=== PATIENT | female | born 1940 | race Caucasian/White ===

== ENCOUNTER → 2018-02-28 | Outpatient (CLI) | payer MEDICARE ==
[2018-02-28 14:18] LABS: HCT 41.5 % (34.0-46.0); HGB 13.2 gm/dL (11.4-16.0); MCH 29.1 pg (25.0-35.0); MCHC 31.9 g/dL (31.0-37.0); MCV 91.4 fL (80.0-100.0); Mean Platelet Volume 7.4; Platelet Count 183 k/uL (150-450); RBC 4.54 m/uL (3.80-5.40); RDW 13.4 % (11.5-15.5); WBC 7.1 k/uL (3.8-10.6)
[2018-02-28 14:30] LABS: Magnesium 1.4 mg/dL (1.6-2.3); Potassium 4.2 mmol/L (3.5-5.1)
== END | disposition home or self-care (01) ==
LOC: LABPAT 13:17
PROVIDERS: ATTEND Internal Medicine Interventional Cardiology
DX: Z01.812 Encounter for preprocedural laboratory examination (principal); I25.10 Atherosclerotic heart disease of native coronary artery without angina pectoris; I10 Essential (primary) hypertension; I73.9 Peripheral vascular disease, unspecified
CPT/HCPCS: 36415; 80051; 82565; 82947; 83735; 84520; 85027

== ENCOUNTER → 2018-03-10 | Day surgery (SDC) | payer MEDICARE ==
[2018-03-06 10:31] VITALS: BMI 30.1
[~2018-03-10] MED LIST: ALPRAZolam 0.25 MG TAB PO PRN; ASPIRIN 81 MG ONE; ATROPINE SULFATE 0.1 MG/ML 10ML SYRINGE ONE; IOPAMIDOL-250 50ML BTL IV ONE; IOPAMIDOL-370 100ML BTL INJ ONE; IOPAMIDOL-370 125ML BTL INJ ONE; LIDOCAINE 1% INJ 10MG/ML (20 ML MDV) SQ ONE; MIDAZOLAM 2 MG/2 ML VIAL IVP ONE; SODIUM CHLORIDE 0.9% 1,000 ML IV SCH; SODIUM CHLORIDE 0.9% 1,000 ML in EMPTY BAG 1 BAG IV ONE; fentaNYL (PF) 50 MCG/ML 2 ML AMP IVP ONE
[2018-03-10 08:25] LABS: Glucose,Whole Blood 134 mg/dL (75-99)
[2018-03-10 08:42] VITALS: RESP 18; TEMP 98.4
--- NOTE | 2018-03-10 11:58 | IR ---
EXAMINATION TYPE: IR angio abdominal w runoff DATE OF EXAM: 03/10/2018 CLINICAL HISTORY: Left leg pain. Abnormal ultrasound. TECHNIQUE: Fluoroscopy. COMPARISON: None. FINDINGS: Fluoroscopic guidance was provided during thoracic angiogram with carotid runoff and follo w-up abdominal angiogram with lower extremity runoff procedure performed by Dr. Kumar. A total of 7.2 minutes of fluoroscopic time was utilized during the procedure and 9 cine runs are acquired. Please refer to procedure note for further details as I was not present nor performed procedure. IMPRESSION: As Above.
--- NOTE | 2018-03-10 15:01 | LTR ---
March 10, [address] Cutler: Ms. 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 She also underwent an abdominal aortogram and bilateral lower extremities runoff and that showed severe disease involving the left external iliac arteries. S he will be scheduled to undergo stenting of both the carotid and left iliac in the next few weeks. I want to thank you for allowing me to participate in her care and please do not hesitate to call if you have any question or concern. MMODL / IJN: [id number] /
[2018-03-10 17:39] VITALS: PULSE 54
[2018-03-10 17:40] VITALS: BP 108/55
--- NOTE | 2018-03-10 18:58 | AN ---
ANGIOGRAPHY REPORT CAROTID ANGIOGRAM: DATE OF SERVICE: 03/10/2018 PERFORMING PHYSICIAN: Devan Kumar MD, wiping cloth cutter. PROCEDURES PERFORMED: 1. Aortic arch angiogram. 2. Selective bilateral internal carotid artery angiogram. INDICATION: This is a pleasant 77-year-old female patient with hypertension and dyslipidemia who follows with Dr. Wesley Mar in the office as an outpatient. She recently underwent a carotid duplex study that revealed severe disease involving the right internal carotid artery. She was brought today to undergo an aortic arch angiogram and bilateral carotid angiogram. APPROACH: Right common femoral artery. COMPLICATIONS: None. LEVEL OF SEDATION: Moderate. Sedation length of 15 minutes. PROCEDURE DESCRIPTION: After obtaining informed consent, the patient was brought to the cardiac label maker. The right common femoral artery was cannulated using micropuncture technique. The micropuncture wire passed easily. Then I placed a 5-Hungarian sheath in the right common femoral artery. After that I did an aortic arch angiogram and bilateral carotid angiogram. The aortic arch angiogram was performed using a pigtail catheter. After that I did selective bilateral carotid angiogram using JB2 catheter. The procedure was completed without any complication. The aortic arch angiogram was performed in the SHEKHAR projection and using a power injection. The aortic arch is angiographically normal. It is a type 1 aortic arch as well as a bovine arch. SELECTIVE CAROTID ANGIOGRAM 1. Right carotid system: The right common carotid artery appeared to be angiographically normal. The right external carotid artery appeared to be angiographically normal. The right internal carotid artery has an eccentric lesion that appeared to be in the range of 80% to 90%. 2. Left carotid system: The left common carotid artery appeared to be angiographically normal. The left external carotid artery appeared to be angiographically normal. The left internal carotid artery has only intermediate lesion in the range of 50%. CONCLUSION: 1. Bovine arch. 2. 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 3. Mild to moderate disease involving the left internal carotid artery. POST-PROCEDURE MANAGEMENT: 1. The patient is going to be discharged home. 2. We will discuss with her the option of revascularization of the right internal carotid artery. MMODL / IJN: [id number] /
--- NOTE | 2018-03-10 19:31 | AN ---
ANGIOGRAPHY REPORT DATE OF SERVICE: 03/10/2018. PERFORMING PHYSICIAN: Devan Kumar MD, echocardiography technologist. PROCEDURES PERFORMED: 1. Abdominal aortogram. 2. Bilateral lower extremity runoff. INDICATION: This is a very pleasant 77-year-old female patient who was experiencing bilateral lower extremity intermittent claudication, worse on the left side. PROCEDURE DESCRIPTION: I did an abdominal aortogram and bilateral lower extremity runoff using a 5-Congolese pigtail catheter which was initially placed at the level of the renal arteries, and it was pulled into above the bifurcation of the aorta to right and left common iliac arteries. The procedure was completed without any complication. SELECTIVE PERIPHERAL ANGIOGRAM: 1. 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 There was good flow in the aorta. There was no dye staining. 2. Common iliac arteries. The right common iliac artery appeared to have intermediate disease only, and the left common iliac artery also appeared to have mild disease only. 3. External iliac arteries. The right external iliac artery appeared to have intermediate to severe disease and the left external iliac artery appeared to be subtotally occluded. 4. Internal iliac arteries. The right and left internal iliac arteries are patent. 5. Common femoral arteries. The right and left common femoral arteries appeared to have mild disease only. 6. Profundae. The right and left profundae are patent. 7. SFA. The right SFA has intermediate disease in the mid portion and the left SFA appeared to have mild disease only. 8. Below the knee. There is 3-vessel runoff below the knee bilaterally. CONCLUSION: 1. Spontaneous dissection involving the infrarenal aorta. It does not seem to be flow- limiting. 2. 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 POST-PROCEDURE MANAGEMENT: 1. The patient will be scheduled to undergo a PLEAT TAPER of bilateral iliacs. 2. At the same time, I will perform an IVUS of the aorta to assess the spontaneous dissection with possible stenting of the infrarenal aorta. MMODL / IJN: [id number] /
== END ==
LOC: CATHCVL 07:35
PROVIDERS: ATTEND Internal Medicine Interventional Cardiology
DX: I65.21 Occlusion and stenosis of right carotid artery (principal); I77.9 Disorder of arteries and arterioles, unspecified; I70.0 Atherosclerosis of aorta; I73.9 Peripheral vascular disease, unspecified; I10 Essential (primary) hypertension; E78.5 Hyperlipidemia, unspecified; E78.00 Pure hypercholesterolemia, unspecified; E11.9 Type 2 diabetes mellitus without complications; I25.10 Atherosclerotic heart disease of native coronary artery without angina pectoris; Z79.84 Long term (current) use of oral hypoglycemic drugs; Z79.82 Long term (current) use of aspirin; Z79.899 Other long term (current) drug therapy; Z72.0 Tobacco use; Z82.49 Family history of ischemic heart disease and other diseases of the circulatory system; Z91.041 Radiographic dye allergy status; Z88.6 Allergy status to analgesic agent; Z88.0 Allergy status to penicillin; Z88.2 Allergy status to sulfonamides; Z88.8 Allergy status to other drugs, medicaments and biological substances; Z91.048 Other nonmedicinal substance allergy status; Z91.09 Other allergy status, other than to drugs and biological substances
CPT/HCPCS: 75625; 75716; 36222; C1894; C1769 ×4; J2250; J2001; J3010; Q9966; Q9967 ×2

== ENCOUNTER 2018-03-13 22:35 | Observation (INO) | payer MEDICARE ==
--- NOTE | 2018-03-13 23:03 | ED ---
Allergic Reaction HPI - General Chief complaint: Allergic Reaction Stated complaint: allergic reaction Time Seen by Provider: 03/13/18 22:42 Source: patient, EMS Mode of arrival: EMS Limitations: no limitations - History of Present Illness Initial Comments: 's patient is a 77-year-old woman presenting after she had syncopal event at home that she believes is related to exposure to IV contrast dye and steroids. The patient states that she had a previously known IV contrast dye and hydrocortisone ALLERGY. She had intravascular procedures scheduled for Saturday so they began pretreatment of her with hydrocortisone. She states that she started to notice a rash on her abdomen when she went in for the procedure on Saturday. She had angiogram of the aorta and also of the carotid arteries performed. The patient went home and then over the course this evening noticed that she was starting to feel itchy and was developing some redness to her skin. Patient was sitting at a table tonight when she passed out and her grandson phoned EMS. The patient was unconscious less than 1 minute. She did not have any seizure activity noted. There was no loss of continence. There is no reported postictal period. EMS reported that the patient's oxygen saturation was in the upper 80s and that she was having a lot of wheezing and was dyspneic so they did give albuterol nebulized treatment and started an IV. On arrival, patient denies chest pain. No diaphoresis area no nausea or vomiting. MD Complaint: allergic reaction, other (Syncope) -: hour(s) Symptoms: rash, itching, syncopy Severity: moderate Treatment Prior to Arrival: bronchodilator Previous Allergy History: other (See above) - Related Data Home Medications Medication Instructions Recorded Confirmed Aspirin 81 tab PO DAILY 02/26/15 03/13/18 amLODIPine [Norvasc] 5 mg PO DAILY 02/26/15 03/13/18 glipiZIDE [Glucotrol] 2.5 mg PO HS 02/26/15 03/13/18 Losartan-Hctz 50-12.5 mg [Hyzaar 1 tab PO QAM 03/06/18 03/13/18 50-12.5] Rosuvastatin Calcium 5 mg PO MOWEFR 03/06/18 03/13/18 Atenolol [Tenormin] 25 mg PO DAILY 03/13/18 03/13/18 metFORMIN HCL [Glucophage] 1,000 mg PO BID 03/13/18 03/13/18 Allergies Allergy/AdvReac Type Severity Reaction Status Date / Time Iodinated Contrast- Oral and Allergy Severe Rash/Hives Verified 03/13/18 22:44 IV Dye atorvastatin calcium Allergy Rash/Hives Verified 03/13/18 22:44 [From Lipitor] dextromethorphan HBr Allergy Rash/Hives Verified 03/13/18 22:44 [From NyQuil] doxylamine succinate Allergy Rash/Hives Verified 03/13/18 22:44 [From NyQuil] fenofibrate nanocrystallized Allergy Rash/Hives Verified 03/13/18 22:44 [From Tricor] fenofibrate,micronized Allergy Rash/Hives Verified 03/13/18 22:44 [From Tricor] fexofenadine HCl Allergy Rash/Hives Verified 03/13/18 22:44 [From Marian] povidone-iodine Allergy Rash/Hives Verified 03/13/18 22:44 [From Betadine] prednisone Allergy Rash/Hives Verified 03/13/18 22:44 pseudoephedrine HCl Allergy Rash/Hives Verified 03/13/18 22:44 [From NyQuil] soap [From Betadine] Allergy Rash/Hives Verified 03/13/18 22:44 Sulfa (Sulfonamide Allergy Rash/Hives Verified 03/13/18 22:44 Antibiotics) acetaminophen [From NyQuil] AdvReac Rash/Hives Verified 03/13/18 22:44 naproxen [From Naprosyn] AdvReac Rash/Hives Verified 03/13/18 22:44 Penicillins AdvReac Rapid Verified 03/13/18 22:44 Heart Rate ramipril [From Altace] AdvReac Cough Verified 03/13/18 22:44 iv contrast Allergy Rash/Hives Uncoded 03/13/18 22:42 Review of Systems ROS Statement: Those systems with pertinent positive or pertinent negative responses have been documented in the HPI. ROS Other: All systems not noted in ROS Statement are negative. Constitutional: Denies: fever, chills Respiratory: Reports: as per HPI, dyspnea, wheezes Cardiovascular: Reports: as per HPI, palpitations, syncope. Denies: chest pain , orthopnea, edema Gastrointestinal: Denies: abdominal pain, nausea, vomiting Genitourinary: Denies: dysuria Musculoskeletal: Denies: back pain Skin: Reports: as per HPI, rash, change in color Neurological: Denies: headache, weakness, numbness Past Medical History Past Medical History: Diabetes Mellitus, Hyperlipidemia, Hypertension History of Any Multi-Drug Resistant Organisms: None Reported Past Surgical History: Back Surgery, Hysterectomy, Tonsillectomy Additional Past Surgical History / Comment(s): foot, eye, carpal tunnel Past Psychological History: No Psychological Hx Reported Smoking Status: Never smoker Past Alcohol Use History: None Reported Past Drug Use History: None Reported General Exam Limitations: no limitations General appearance: alert, anxious Head exam: Present: atraumatic, normocephalic Eye exam: Present: normal appearance. Absent: scleral icterus, conjunctival injection ENT exam: Present: normal oropharynx, mucous membranes moist Neck exam: Present: normal inspection Respiratory exam: Present: normal lung sounds bilaterally. Absent: respiratory distress, wheezes, rales, rhonchi, stridor Cardiovascular Exam: Present: regular rate, normal rhythm, normal heart sounds. Absent: systolic murmur, diastolic murmur, rubs, gallop GI/Abdominal exam: Present: soft. Absent: distended, tenderness, guarding, rebound, mass Extremities exam: Present: normal inspection, normal capillary refill. Absent: pedal edema, calf tenderness Back exam: Present: normal inspection. Absent: CVA tenderness (R), CVA tenderness (L) Neurological exam: Present: alert Skin exam: Present: warm, dry, intact, erythema, urticaria (Confluent) Course Vital Signs 03/13/18 03/13/18 03/14/18 22:42 22:53 00:36 Temperature 98.3 F Pulse Rate 80 73 Respiratory 16 16 Rate Blood Pressure 141/89 O2 Sat by Pulse 99 Oximetry 03/14/18 03/14/18 00:37 00:43 Temperature Pulse Rate 75 73 Respiratory 16 Rate Blood Pressure 136/55 O2 Sat by Pulse 100 Oximetry Medical Decision Making - Medical Decision Making This patient is a 77-year-old woman presenting for evaluation of suspected ALLERGIC reaction. She is having confluent urticaria. She was having respiratory distress and wheezing prior to arrival but this appears to have resolved with albuterol. The patient does refuse IV Solu-Medrol stating she cannot take any steroids at all. She states multiple examples of previous reaction to both oral and topical prednisone and hydrocortisone. - Lab Data Result diagrams: 03/13/18 22:58 03/13/18 22:58 Lab Results 03/13/18 03/13/18 03/13/18 Range/Units 22:58 22:58 22:58 WBC 10.1 (3.8-10.6) k/uL RBC 4.43 (3.80-5.40) m/uL Hgb 13.7 (11.4-16.0) gm/dL Hct 40.4 (34.0-46.0) % MCV 91.1 (80.0-100.0) fL MCH 30.9 (25.0-35.0) pg MCHC 33.9 (31.0-37.0) g/dL RDW 13.6 (11.5-15.5) % Plt Count 166 (150-450) k/uL Neutrophils % 77 % Lymphocytes % 8 % Monocytes % 3 % Eosinophils % 11 % Basophils % 0 % Neutrophils # 7.8 H (1.3-7.7) k/uL Lymphocytes # 0.9 L (1.0-4.8) k/uL Monocytes # 0.3 (0-1.0) k/uL Eosinophils # 1.1 H (0-0.7) k/uL Basophils # 0.0 (0-0.2) k/uL Sodium 135 L (137-145) mmol/L Potassium 3.7 (3.5-5.1) mmol/L Chloride 104 (98-107) mmol/L Carbon Dioxide 20 L (22-30) mmol/L Anion Gap 11 mmol/L BUN 16 (7-17) mg/dL Creatinine 0.90 (0.52-1.04) mg/dL Est GFR (CKD-EPI)AfAm 72 (>60 ml/min/1.73 sqM) Est GFR (CKD-EPI)NonAf 63 (>60 ml/min/1.73 sqM) Glucose 212 H (74-99) mg/dL Calcium 8.7 (8.4-10.2) mg/dL Total Bilirubin 0.6 (0.2-1.3) mg/dL AST 16 (14-36) U/L ALT 23 (9-52) U/L Alkaline Phosphatase 55 (38-126) U/L Troponin I <0.012 (0.000-0.034) ng/mL Total Protein 5.4 L (6.3-8.2) g/dL Albumin 3.1 L (3.5-5.0) g/dL - EKG Data -: EKG Interpreted by Tn EKG shows normal: sinus rhythm (Underlying rhythm is sinus with a premature supraventricular complex, the rate is 87 bpm), axis (Normal), intervals (Normal) , QRS complexes (Low voltage QRS complex.) Interpretation: nonspecific ST-T wave changes, other (Possible old anterior infarct.) Disposition Clinical Impression: Allergic reaction, Syncope Disposition: ADMITTED IP TO THIS HOSP Condition: Fair Is patient prescribed a controlled substance at d/c from ED?: No Referrals: Leeroy Blankenship MD [REFERRING] - 1-2 days
[2018-03-14] MEDS ORDERED: ALBUTEROL NEBULIZED 2.5 MG/3 ML INHALATION STA ×2 (00:10→02:39)
[2018-03-14] MEDS ORDERED: SODIUM CHLORIDE 0.9% 500 ML 500 ML IV STA (00:10)
[2018-03-14] MEDS ORDERED: FAMOTIDINE 20 MG/2 ML VIAL IV STA (00:10)
[2018-03-14] MEDS ORDERED: diphenhydrAMINE 50 MG/ML 1 ML VIAL IVP STA (00:10)
--- NOTE | 2018-03-14 00:29 | XR ---
EXAMINATION TYPE: XR chest 1V portable DATE OF EXAM: 03/14/2018 COMPARISON: 02/26/2015 HISTORY: Short of breath TECHNIQUE: Single frontal view of the chest is obtained. FINDINGS: Heart and mediastinum are within normal limits. Lungs are clear. Diaphragm is normal. Ther e are chest leads. IMPRESSION: No active cardiopulmonary disease. No change.
[2018-03-14 00:44] LABS: Basophils % (A) 0 %; Eosinophils # (A) 1.1 k/uL (0-0.7); Eosinophils % (A) 11 %; HCT 40.4 % (34.0-46.0); HGB 13.7 gm/dL (11.4-16.0); Lymphocytes # (A) 0.9 k/uL (1.0-4.8); Lymphocytes % (A) 8 %; MCH 30.9 pg (25.0-35.0); MCHC 33.9 g/dL (31.0-37.0); MCV 91.1 fL (80.0-100.0); Mean Platelet Volume 8.7; Monocytes # (A) 0.3 k/uL (0-1.0); Monocytes % (A) 3 %; Neutrophils # (A) 7.8 k/uL (1.3-7.7); Neutrophils % (A) 77 %; Platelet Count 166 k/uL (150-450); RBC 4.43 m/uL (3.80-5.40); RDW 13.6 % (11.5-15.5); WBC 10.1 k/uL (3.8-10.6)
[2018-03-14 00:58] LABS: Albumin 3.1 g/dL (3.5-5.0); Calcium 8.7 mg/dL (8.4-10.2); Potassium 3.7 mmol/L (3.5-5.1); Total Bilirubin 0.6 mg/dL (0.2-1.3); Total Protein 5.4 g/dL (6.3-8.2)
[2018-03-14] MEDS ORDERED: LORazepam 2 MG/ML INJ IV STA (02:34)
[2018-03-14] MEDS ORDERED: NITROGLYCERIN SL TABS 0.4 MG TAB SUBLINGUAL PRN (02:37)
[2018-03-14] MEDS: ALBUTEROL NEBULIZED 2.5 MG/3 ML INHALATION SCH ×6 (03:03→19:42)
[2018-03-14] MEDS: SODIUM CHLORIDE 0.9% 1,000 ML IV SCH ×2 (03:35→19:00)
[2018-03-14] MEDS: diphenhydrAMINE 50 MG/ML 1 ML VIAL IVP SCH ×2 (06:07→09:08)
[2018-03-14] MEDS: FAMOTIDINE 20 MG/2 ML VIAL IV SCH ×3 (06:08→20:49)
[2018-03-14] MEDS ORDERED: MINERAL OIL-WHITE PETROLATUM 120 GM JAR TOPICAL PRN (06:58)
[2018-03-14 07:01] LABS: Creatine Kinase 48 U/L (30-135)
--- NOTE | 2018-03-14 07:11 | P.HPIM ---
History of Present Illness H&P Date: 03/14/18 Chief Complaint: allergic reaction 77-year-old female with history of hypertension and diabetes. Patient also has known ALLERGIC reaction to contrast and steroid Patient presents to the hospital today after a syncopal attack at home lasting less than 1 minute no specific symptoms. pre or Post the attack patient was sitting at the dining table when that happened with this by her family no seizure-like activity no loss of bowel or bladder control patient regained consciousness quickly was asymptomatic otherwise family called EMS and was brought to the hospital. EMS noted that she was wheezing and desats in down to the upper 80s when they first saw her for which they gave her breathing treatments. Patient also reports that she had angiography study done on Saturday for which she had steroids and contrast dye and she started developing the rash since Saturday started around her abdomen and then became more diffused associated with itching and raised skin especially over her forearms. She had 2 similar reactions in the past and usually they take long time to resolve for at least couple weeks. Patient describes pruritus and red rash that's spreading all over her body and she cannot think of any other reason for the rash other than the exposure to the contrast dye and the steroids as this attack is typical to what she has experienced in the past. She denies any history of intubation or wheezing in the past. Currently she denies any trouble swallowing breathing or talking. But she feels that her throat is feeling funny and maybe a little swollen. Patient vital signs in the emergency department has been stable, no desats , no wheezing no trouble swallowing or talking or breathing. Her labs were pretty much unremarkable. Patient admitted for monitoring Review of Systems Pertinent positives as noted in HPI. All other systems were reviewed and are negative Past Medical History Past Medical History: Diabetes Mellitus, Hyperlipidemia, Hypertension History of Any Multi-Drug Resistant Organisms: None Reported Past Surgical History: Back Surgery, Hysterectomy, Tonsillectomy Additional Past Surgical History / Comment(s): foot, eye, carpal tunnel Past Psychological History: No Psychological Hx Reported Smoking Status: Never smoker Past Alcohol Use History: None Reported Past Drug Use History: None Reported Medications and Allergies Home Medications Medication Instructions Recorded Confirmed Type Aspirin 81 tab PO DAILY 02/26/15 03/13/18 History amLODIPine [Norvasc] 5 mg PO DAILY 02/26/15 03/13/18 History glipiZIDE [Glucotrol] 2.5 mg PO HS 02/26/15 03/13/18 History Losartan-Hctz 50-12.5 mg [Hyzaar 1 tab PO QAM 03/06/18 03/13/18 History 50-12.5] Rosuvastatin Calcium 5 mg PO MOWEFR 03/06/18 03/13/18 History Atenolol [Tenormin] 25 mg PO DAILY 03/13/18 03/13/18 History metFORMIN HCL [Glucophage] 1,000 mg PO BID 03/13/18 03/13/18 History Allergies Allergy/AdvReac Type Severity Reaction Status Date / Time Iodinated Contrast- Oral and Allergy Severe Rash/Hives Verified 03/13/18 22:44 IV Dye atorvastatin calcium Allergy Rash/Hives Verified 03/13/18 22:44 [From Lipitor] dextromethorphan HBr Allergy Rash/Hives Verified 03/13/18 22:44 [From NyQuil] doxylamine succinate Allergy Rash/Hives Verified 03/13/18 22:44 [From NyQuil] fenofibrate nanocrystallized Allergy Rash/Hives Verified 03/13/18 22:44 [From Tricor] fenofibrate,micronized Allergy Rash/Hives Verified 03/13/18 22:44 [From Tricor] fexofenadine HCl Allergy Rash/Hives Verified 03/13/18 22:44 [From Marian] povidone-iodine Allergy Rash/Hives Verified 03/13/18 22:44 [From Betadine] prednisone Allergy Rash/Hives Verified 03/13/18 22:44 pseudoephedrine HCl Allergy Rash/Hives Verified 03/13/18 22:44 [From NyQuil] soap [From Betadine] Allergy Rash/Hives Verified 03/13/18 22:44 Sulfa (Sulfonamide Allergy Rash/Hives Verified 03/13/18 22:44 Antibiotics) acetaminophen [From NyQuil] AdvReac Rash/Hives Verified 03/13/18 22:44 naproxen [From Naprosyn] AdvReac Rash/Hives Verified 03/13/18 22:44 Penicillins AdvReac Rapid Verified 03/13/18 22:44 Heart Rate ramipril [From Altace] AdvReac Cough Verified 03/13/18 22:44 iv contrast Allergy Rash/Hives Uncoded 03/13/18 22:42 Physical Exam Vitals: Vital Signs Temp Pulse Resp BP Pulse Ox 03/14/18 04:00 71 19 136/67 79 L 03/14/18 03:00 109 H 16 124/54 100 03/14/18 02:42 70 16 124/54 100 03/14/18 02:00 103 H 10 L 125/69 100 03/14/18 01:00 91 23 136/55 99 03/14/18 00:43 73 03/14/18 00:37 75 16 136/55 100 03/14/18 00:36 73 03/13/18 22:53 16 03/13/18 22:42 98.3 F 80 16 141/89 99 Intake and Output 03/13/18 03/13/18 03/14/18 14:59 22:59 06:59 Other: Weight 76.657 kg Constitutional: No acute distress, conversant, pleasant Eyes: Anicteric sclerae, moist conjunctiva, no lid-lag Pupils equal round reactive to light ENMT: NC/AT Oropharynx clear, no erythema, exudates Neck: Supple, FROM, no masses, or JVD No carotid bruits No thyromegaly Lungs: Clear to auscultation, no wheezes nor rhonchi no rales No stridor Clear to percussion Normal respiratory effort, no accessory muscle use Cardiovascular: Heart regular in rate and rhythm, No murmurs, gallops, or rubs No peripheral edema Abdominal: Soft Nontender, no guarding, rebound or rigidity Abdomen moving with respiration Normoactive bowel sounds No hepatomegaly, No splenomegaly No palpable mass No abdominal wall hernia noted Skin: Diffuse erythematous skin rash with raised skin over the abdomen and bilateral forearms, warm to the touch no tenderness to palpation, evidence of excoriation pedraza over bilateral upper extremities. Rashes covering pre-much the whole back, chest, abdomen, bilateral upper extremities, neck, thighs bilaterally. No ulcers, no palpable nodules. No swelling of the mucous membranes over the eyes, lips or mouth Extremities: No digital cyanosis No clubbing Pedal pulses intact and symmetrical Radial pulses intact and symmetrical No calf tenderness Psychiatric: Alert and oriented to person, place and time Appropriate affect fair judgment Neuro Muscles Strength 5/5 in all 4 extremities Sensation to light touch grossly present throughout Cranial nerves II-XII grossly intact No focal sensory deficits Lymphatics: no palpable cervical or supraclavicular , or inguinal lymph nodes Results CBC & Chem 7: 03/13/18 22:58 03/13/18 22:58 Labs: Abnormal Lab Results - Last 24 Hours (Table) 03/13/18 03/13/18 Range/Units 22:58 22:58 Neutrophils # 7.8 H (1.3-7.7) k/uL Lymphocytes # 0.9 L (1.0-4.8) k/uL Eosinophils # 1.1 H (0-0.7) k/uL Sodium 135 L (137-145) mmol/L Carbon Dioxide 20 L (22-30) mmol/L Glucose 212 H (74-99) mg/dL Total Protein 5.4 L (6.3-8.2) g/dL Albumin 3.1 L (3.5-5.0) g/dL Assessment and Plan Assessment: 77-year-old female known to have ALLERGY to steroids and contrast dye admitted under observation with anticipated length of stay less than 48 hours due to severe ALLERGIC reaction with diffuse rash and urticaria and itching. Patient had an episode of syncope today for which she was brought to the hospital. Patient had exposure to contrast dye 3-4 days ago Plan: Severe ALLERGIC reaction due to exposure to contrast dye and steroids patient known to have ALLERGIES to this Benadryl and Pepcid IV Supportive care Monitor for any mucous membranes swelling or throat swelling, currently patient has no difficulty talking breathing or swallowing, clinically no evidence of swelling of mucous membranes at this time Monitor vital signs Emollients and lotions for the skin Breathing treatments as needed, for reported wheezing and desats by EMS Syncope, possibly due to hypoxia EMS reported hypoxia in the upper 80s upon initial evaluation along with wheezing improved after breathing treatments Cardiac monitoring Labs unremarkable Chronic conditions Diabetes mellitus, insulin sliding scale Hypertension resume home meds Hyperlipidemia resume home meds DVT prophylaxis mechanical Surrogate decision-maker: Patient CODE STATUS: Full code Discussed with: Patient, ER Anticipated discharge: <[address]: Home A total of 55 minutes was spent on the care of this complex patient more than 50 % of the time was spent in counseling and care coordination.
[2018-03-14 07:13] LABS: Creatine Kinase MB 0.8 ng/mL (0.0-2.4); Troponin I <0.012 ng/mL (0.000-0.034)
[2018-03-14 08:56] VITALS: BMI 29.9
[2018-03-14] MEDS: ATORVASTATIN 10 MG TAB PO SCH ×2 (09:09→09:50)
[2018-03-14] MEDS: LOSARTAN-HCTZ 50-12.5 MG 1 EACH TAB PO SCH (09:09)
[2018-03-14] MEDS: amLODIPine 5 MG TAB PO SCH (09:09)
[2018-03-14] MEDS: ASPIRIN 81 MG PO SCH (09:09)
[2018-03-14] MEDS: ATENOLOL 25 MG TAB PO SCH (09:09)
[2018-03-14 09:48] LABS: Glucose,Whole Blood 172 mg/dL (75-99)
[2018-03-14] MEDS ORDERED: ACETAMINOPHEN TAB 325 MG TAB PO PRN (10:56)
[2018-03-14] MEDS ORDERED: HYDROcodone/APAP 5-325MG 1 EACH TAB PO PRN (10:56)
[2018-03-14] MEDS: INSULIN ASPART 100 UNIT/ML 1 ML 10 ML VIAL SQ SCH ×4 (10:57→20:50)
--- NOTE | 2018-03-14 11:09 | P.PN ---
Progress Note - Text Progress Note Date: 03/14/18 Hospitalist Interval Note Patient seen and examined at bedside. She continues to have a diffuse rash which is now spreading down her legs. It is very itchy. She has a history of these reactions with every IV contrast exposure. She states that they typically last 4-5 weeks. She has tried oral prednisone in the past but it seems to make symptoms worse and not better. She has taken Benadryl, Claritin, and Pepcid prior for these reactions. This time she was given hydrocortisone by cardiology in order to prevent her rash, however she was taking this and it did not help. Vital signs reviewed General: non toxic, no distress, appears at stated age Derm: Diffuse macular papular erythematous warm rash extending from the neck all the way down involving the trunk, back, abdomen, flaking, both upper extremity, and both legs to the knee. warm, dry Head: atraumatic, normocephalic, symmetric Eyes: EOMI, no lid lag, anicteric sclera Mouth: no lip lesion, mucus membranes moist Cardiovascular: S1S2 reg, no murmur, positive posterior tibial pulse bilateral, Lungs: CTA bilateral, no rhonchi, no rales , no accessory muscle use Abdominal: soft, nontender to palpation, no guarding, no appreciable organomegaly Ext: no gross muscle atrophy, no edema, no contractures Neuro: CN II-XI grossly intact, no focal neuro deficits Psych: Alert, oriented, appropriate affect , slightly confused Assessment/Plan: 1. Severe ALLERGIC dermatologic reaction to contrast dye and prednisone- typically reactions between steroids are among similar classes so you have possible reaction abuse another class a steroid. However there should not be an interaction between classes. Therefore I will use a class C steroid dexamethasone 4 mg every 8 hours 24 hours. Continue with Benadryl as needed, Pepcid twice daily, has had a history of an ALLERGIC reaction to a labor and therefore will avoid Claritin at this point in time., Updrafts as needed if wheezing were to reoccur 2. Syncope, possibly secondary to hypoxia versus vasovagal-telemetry, cardiology recommendations, echocardiogram 3. Diabetes mellitus type 2-hold glipizide and metformin, follow blood sugars, insulin sliding scale, await hemoglobin A1c 4. Hypertension-Norvasc, atenolol, losartan/hydrochlorothiazide, follow blood pressures 5. Dyslipidemia-patient takes Crestor at home, only have Lipitor available and she is ALLERGIC to that and therefore we'll discontinue with resumption of her home Crestor on discharge. DVT prophylaxis: early ambulation Discussed with: Patient, , nursing Anticipated discharge date: [address]: home A total of 35 minutes was spent on the care of this complex patient more than 50 % of the time was spent in counseling and care coordination. This is an update note for patient , for full note on 03/14/18 see H and P. There is no charge associated with this note.
[2018-03-14] MEDS: DEXAMETHASONE SOD PHOSPHATE 4 MG/ML 1 ML VIAL IV SCH ×2 (11:24→20:49)
[2018-03-14 12:18] LABS: Creatine Kinase MB 0.8 ng/mL (0.0-2.4); Troponin I 0.031 ng/mL (0.000-0.034)
--- NOTE | 2018-03-14 13:53 | CONS ---
CONSULTATION This is a 77-year-old lady with a history of hypertension, type 2 diabetes, hyperlipidemia, peripheral arterial disease. She is known to have a CAD with a total occlusion of RCA and normal left system and a cardiac cath was performed several years ago. A Lexiscan stress test from October of 2016 did not reveal any ischemia. This lady underwent a aortogram with runoff as well as an arch study and selective carotid angiography by Dr. Kumar. This procedure was performed on Saturday. The patient has a known allergic reaction to the IV dye. She was optimally prepared with hydrocortisone and Benadryl and H2 blockers. However, she came in with a diffuse rash all over the body especially the both upper and lower extremities and chest wall with pruritus. She has been seen by the hospitalist Dr. Auguste, initiated on Decadron. Her aortogram with runoff and carotid study revealed that she has a significant stenosis in the right internal carotid artery and also there is disease involving the distal aorta and the lower extremities as well. I evaluated the patient in the extended stay unit. She is hemodynamically stable, resting comfortably, does not have any wheezing. Her blood pressure is 130/80, pulse rate is 70 per minute. EKG revealed a sinus mechanism with minor nonspecific ST changes, poor R-wave progression. PAST MEDICAL HISTORY: Past medical history is remarkable for hypertension, diabetes, hyperlipidemia, and known CAD with RCA occlusion, but normal Lexiscan stress test about a year ago. PHYSICAL EXAMINATION: On examination, blood pressure is 130/70, pulse rate is 70 per minute. HEENT: Unremarkable. Fundus was not examined by me. Neck is supple. There is no JVD. I do not hear a carotid bruit. Heart exam reveals S1, S2 with ejection systolic murmur at the base. Lungs are clear. Abdomen is soft. Lower extremities reveal diminished pulses both lower extremities, especially on the left. There is diffuse rash all over the upper extremities and the trunk as well. IMPRESSION: 1. Coronary artery disease with a recent negative stress test by Lexiscan about a year and a half ago. 2. Bilateral carotid disease, significant stenosis on the right side and this was based on a recent carotid angiogram by Dr. Kumar. 3. Hypertension. 4. Hyperlipidemia. 5. Type 2 diabetes mellitus. 6. The patient is admitted with a reaction to the IV dye in spite of adequate preparation with steroids and Benadryl and H2 blockers. RECOMMENDATIONS: I agree with the Decadron advised by the hospitalist. I am also recommending that we continue her other medications which should be resumed. I also spoke to Dr. Chairez and requested him to evaluate the patient because of significant right carotid disease for possible surgery. The issues involving the distal aorta and also the lower extremity vascular issues will be addressed by Dr. Kumar. I came back to see the patient after some time and it appears that there is already some improvement in her rash and she is feeling better. Her aortography revealed that there may be a calcification in the infrarenal aorta with a spontaneous dissection and a left external iliac artery was subtotally occluded. The right internal carotid has significant stenosis. I discussed with the patient and her at length regarding the management plan and Dr. Chairez will hopefully see the patient in the next day or so. MMPIERRE / NATHANN: [id number] /
[2018-03-14] MEDS: diphenhydrAMINE 50 MG/ML 1 ML VIAL IVP PRN ×2 (16:01→20:50)
[2018-03-14 16:03] LABS: Glucose,Whole Blood 271 mg/dL (75-99)
[2018-03-14 17:10] LABS: Glucose,Whole Blood 267 mg/dL (75-99)
--- NOTE | 2018-03-14 18:51 | P.GSCN ---
History of Present Illness Consult date: 03/14/18 Reason for Consult: Carotid stenosis Requesting physician: Yola Mar History of present illness: 77-year-old female with history of carotid stenosis and recent arch angiogram with selective carotid angiogram presented to the emergency department secondary to difficulty breathing as well as diffuse, severe ALLERGIC rash to the entirety of her abdominal and upper body. She states she has had these reactions in the past every time she gets contrast which usually resolves after approximately 4-5 weeks. She does have a history of carotid disease and has been seen in the past at [facility] [place] which she was told she needed a carotid endarterectomy. She denies any lateralizing symptoms such as weakness, vision changes or speech issues and denies any history of TIA or stroke. She does admit to having significant lower extremity claudication which she states she exercises and notes she is unable to keep up with the 92-year-old's in the group. She states her legs hurt from the groin area and extended down with ambulation. She denies any rest pain but does admit to having cramping in her calves at night. Upon her angiogram is noted that she has a focal dissection nonflow limiting in the aorta along with a subtotal occlusion of the left external iliac artery. Her arch angiogram demonstrates right internal carotid artery stenosis just distal to the takeoff of approximately 70-80%. She denies any fevers, chills, chest pain or shortness of breath at this time. Review of Systems All systems: negative (As mentioned in the HPI and past medical history) Past Medical History Past Medical History: Coronary Artery Disease (CAD), Diabetes Mellitus, Hyperlipidemia, Hypertension, Vascular Disorder Additional Past Medical History / Comment(s): NIDDM type II, PAD, carotid disease, bilateral claudicatin with ambulation-worse on L side. History of Any Multi-Drug Resistant Organisms: None Reported Past Surgical History: Back Surgery, Heart Catheterization, Hysterectomy, Orthopedic Surgery, Tonsillectomy Additional Past Surgical History / Comment(s): 03/10/18 abdominal aortagram/also check caratids, low back surgery, L foot bunionectomy, bilateral carpal tunnel releases, colonoscopy, bilateral blepharoplasties. Past Anesthesia/Blood Transfusion Reactions: No Reported Reaction Smoking Status: Former smoker - Past Family History Father Family Medical History: Cancer Additional Family Medical History / Comment(s): Father did of cancer at the age of 57yrs-pt does not know type of cancer. He had bronchitis and was a smoker. Mother Family Medical History: Cancer Additional Family Medical History / Comment(s): Mother of cancer at the age of 69yrs-pt does not know type of cancer. Medications and Allergies Home Medications Medication Instructions Recorded Confirmed Type Aspirin 81 tab PO DAILY 02/26/15 03/14/18 History amLODIPine [Norvasc] 5 mg PO DAILY 02/26/15 03/14/18 History glipiZIDE [Glucotrol] 2.5 mg PO HS 02/26/15 03/14/18 History Losartan-Hctz 50-12.5 mg [Hyzaar 1 tab PO QAM 03/06/18 03/14/18 History 50-12.5] Rosuvastatin Calcium 5 mg PO MOWEFR 03/06/18 03/14/18 History Atenolol [Tenormin] 25 mg PO DAILY 03/13/18 03/14/18 History metFORMIN HCL [Glucophage] 1,000 mg PO BID 03/13/18 03/14/18 History Allergies Allergy/AdvReac Type Severity Reaction Status Date / Time Iodinated Contrast- Oral and Allergy Severe Rash/Hives Verified 03/14/18 15:26 IV Dye atorvastatin calcium Allergy Rash/Hives Verified 03/14/18 15:26 [From Lipitor] dextromethorphan HBr Allergy Rash/Hives Verified 03/14/18 15:26 [From NyQuil] doxylamine succinate Allergy Rash/Hives Verified 03/14/18 15:26 [From NyQuil] fenofibrate nanocrystallized Allergy Rash/Hives Verified 03/14/18 15:26 [From Tricor] fenofibrate,micronized Allergy Rash/Hives Verified 03/14/18 15:26 [From Tricor] fexofenadine HCl Allergy Rash/Hives Verified 03/14/18 15:26 [From Marian] povidone-iodine Allergy Rash/Hives Verified 03/14/18 15:26 [From Betadine] prednisone Allergy Rash/Hives Verified 03/14/18 15:26 pseudoephedrine HCl Allergy Rash/Hives Verified 03/14/18 15:26 [From NyQuil] soap [From Betadine] Allergy Rash/Hives Verified 03/14/18 15:26 Sulfa (Sulfonamide Allergy Rash/Hives Verified 03/14/18 15:26 Antibiotics) acetaminophen [From NyQuil] AdvReac Rash/Hives Verified 03/14/18 15:26 naproxen [From Naprosyn] AdvReac Rash/Hives Verified 03/14/18 15:26 Penicillins AdvReac Rapid Verified 03/14/18 15:26 Heart Rate ramipril [From Altace] AdvReac Cough Verified 03/14/18 15:26 iv contrast Allergy Rash/Hives Uncoded 03/13/18 22:42 Surgical - Exam Vital Signs Temp Pulse Resp BP Pulse Ox 98.3 F 80 16 141/89 99 03/13/18 22:42 03/13/18 22:42 03/13/18 22:42 03/13/18 22:42 03/13/18 22:42 - General well developed, well nourished, no distress - Eyes PERRL, normal ocular movement - ENT normal pinna, normal nares - Neck Carotid bruit noted on the right no masses, trachea midline - Respiratory normal expansion, normal respiratory effort, clear to auscultation - Cardiovascular Rhythm: regular - Abdomen Abdomen: soft, non tender - Integumentary Diffuse rash noted the abdomen extending to the neck and chest as well as bilateral upper extremities. There is areas of scabbing noted on the forearms consistent of rubbing or scratching. The rash does kourtney. No evidence of open sores. - Neurologic normal sensation - Psychiatric oriented to time, oriented to person, oriented to place, speech is normal No focal deficits. Vascular examination demonstrates bilateral palpable radial pulses. Palpable right femoral pulse with nonpalpable left common femoral pulse. Unable to palpate DP or PT on the left. Results Reviewed arch angiogram as well as abdominal aortogram with runoffs from 2018. - Labs 03/13/18 22:58 03/13/18 22:58 Abnormal Lab Results - Last 24 Hours (Table) 03/13/18 03/13/18 03/14/18 Range/Units 22:58 22:58 09:47 Neutrophils # 7.8 H (1.3-7.7) k/uL Lymphocytes # 0.9 L (1.0-4.8) k/uL Eosinophils # 1.1 H (0-0.7) k/uL Sodium 135 L (137-145) mmol/L Carbon Dioxide 20 L (22-30) mmol/L Glucose 212 H (74-99) mg/dL POC Glucose (mg/dL) 172 H (75-99) mg/dL Total Protein 5.4 L (6.3-8.2) g/dL Albumin 3.1 L (3.5-5.0) g/dL 03/14/18 03/14/18 Range/Units 16:02 16:58 Neutrophils # (1.3-7.7) k/uL Lymphocytes # (1.0-4.8) k/uL Eosinophils # (0-0.7) k/uL Sodium (137-145) mmol/L Carbon Dioxide (22-30) mmol/L Glucose (74-99) mg/dL POC Glucose (mg/dL) 271 H 267 H (75-99) mg/dL Total Protein (6.3-8.2) g/dL Albumin (3.5-5.0) g/dL Diabetes panel 03/13/18 Range/Units 22:58 Sodium 135 L (137-145) mmol/L Potassium 3.7 (3.5-5.1) mmol/L Chloride 104 (98-107) mmol/L Carbon Dioxide 20 L (22-30) mmol/L BUN 16 (7-17) mg/dL Creatinine 0.90 (0.52-1.04) mg/dL Glucose 212 H (74-99) mg/dL Calcium 8.7 (8.4-10.2) mg/dL AST 16 (14-36) U/L ALT 23 (9-52) U/L Alkaline Phosphatase 55 (38-126) U/L Total Protein 5.4 L (6.3-8.2) g/dL Albumin 3.1 L (3.5-5.0) g/dL Calcium panel 03/13/18 Range/Units 22:58 Calcium 8.7 (8.4-10.2) mg/dL Albumin 3.1 L (3.5-5.0) g/dL Pituitary panel 03/13/18 Range/Units 22:58 Sodium 135 L (137-145) mmol/L Potassium 3.7 (3.5-5.1) mmol/L Chloride 104 (98-107) mmol/L Carbon Dioxide 20 L (22-30) mmol/L BUN 16 (7-17) mg/dL Creatinine 0.90 (0.52-1.04) mg/dL Glucose 212 H (74-99) mg/dL Calcium 8.7 (8.4-10.2) mg/dL Adrenal panel 03/13/18 Range/Units 22:58 Sodium 135 L (137-145) mmol/L Potassium 3.7 (3.5-5.1) mmol/L Chloride 104 (98-107) mmol/L Carbon Dioxide 20 L (22-30) mmol/L BUN 16 (7-17) mg/dL Creatinine 0.90 (0.52-1.04) mg/dL Glucose 212 H (74-99) mg/dL Calcium 8.7 (8.4-10.2) mg/dL Total Bilirubin 0.6 (0.2-1.3) mg/dL AST 16 (14-36) U/L ALT 23 (9-52) U/L Alkaline Phosphatase 55 (38-126) U/L Total Protein 5.4 L (6.3-8.2) g/dL Albumin 3.1 L (3.5-5.0) g/dL Assessment and Plan Assessment: #1 right internal carotid artery stenosis approximately 70-80%. 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 This will likely need surgical intervention in the future but is not an emergency at this time. I would like to see her carotid Dopplers from the office which I will request to compare to the arch angiogram. I did discuss this with the patient who is in complete agreement that we will likely need surgical intervention but we will wait till her rash has improved. She will follow-up in the office in 2 weeks. She did have concerns for any future interventions which may include utilization of contrast dye. She states she would rather than go through having a rash again. I would recommend if any further angiogram is needed to utilize CO2 instead of contrast. Thank you for the consultation. If there are any questions or concerns please feel free to call me on my cell.
[2018-03-14 19:53] LABS: Glucose,Whole Blood 317 mg/dL (75-99)
[2018-03-14] MEDS: HEPARIN SODIUM,PORCINE 5,000 UNIT/ML 1 ML VIAL SQ SCH (20:50)
[2018-03-14] MEDS: metFORMIN 500 MG TAB PO SCH (20:52)
[2018-03-14 22:33] LABS: Hemoglobin A1C 7.4 % (4.0-6.0)
[2018-03-14 23:22] LABS: Cholesterol 117 mg/dL (<200); HDL Cholesterol 36 mg/dL (40-60); LDL Cholesterol,Calculated 51 mg/dL (0-99); Triglycerides 149 mg/dL (<150)
[2018-03-15] MEDS: diphenhydrAMINE 50 MG/ML 1 ML VIAL IVP PRN (01:37)
[2018-03-15] MEDS: ALBUTEROL NEBULIZED 2.5 MG/3 ML INHALATION SCH ×3 (02:47→11:33)
[2018-03-15] MEDS: DEXAMETHASONE SOD PHOSPHATE 4 MG/ML 1 ML VIAL IV SCH (03:08)
--- NOTE | 2018-03-15 06:49 | ECHOF ---
Referral Reason:syncope MEASUREMENTS -------- HEIGHT: 160.0 cm WEIGHT: 76.2 kg BP: 142/62 RVIDd: 2.8 cm (< 3.3) IVSd: 1.1 cm (0.6 - 1.1) LVIDd: 4.3 cm (3.9 - 5.3) LVPWd: 1.1 cm (0.6 - 1.1) IVSs: 1.5 cm LVIDs: 2.5 cm LVPWs: 1.5 cm LA Diam: 2.7 cm (2.7 - 3.8) Ao Diam: 2.5 cm (2.0 - 3.7) AV Cusp: 1.1 cm (1.5 - 2.6) LA Diam: 3.0 cm (2.7 - 3.8) EPSS: 0.3 cm MV E Milton: 0.85 m/s MV DecT: 182 ms MV A Milton: 1.21 m/s MV E/A Ratio: 0.70 AV maxP.17 mmHg AV meanP.99 mmHg RAP: 5.00 mmHg RVSP: 37.25 mmHg MV EF SLOPE: 102.43 mm/s (70 - 150) MV EXCURSION: 1.50 cm (> 18.000) FINDINGS -------- Sinus rhythm. This was a technically adequate study. The left ventricular size is normal. There is borderline concentric left ventricular hypertrophy. Overall left ventricular systolic function is normal with, an EF between 55 - 60 %. The right ventricle is normal in size and function. Normal LA size by volume 22+/-6 ml/m2. The right atrium is normal in size. There is mild aortic valve sclerosis. Trace to mild aortic regurgitation. There is mild aortic st enosis present. Peak/mean gradient across the Aortic Valve is 21.17mmHg / 12.99mmHg. The mitral valve leaflets are mildly thickened. Mild mitral annular calcification present. There is trace to mild mitral regurgitation. Mild tricuspid regurgitation present. There is borderline pulmonary hypertension. The right ventr icular systolic pressure, as measured by Doppler, is 37.25mmHg. Trace/mild (physiologic) pulmonic regurgitation. The aortic root size is normal. Normal inferior vena cava with normal inspiratory collapse consistent with estimated right atrial pre ssure of 5 mmHg. There is a trivial pericardial effusion present. CONCLUSIONS -------- 1. Sinus rhythm. 2. This was a technically adequate study. 3. The left ventricular size is normal. 4. There is borderline concentric left ventricular hypertrophy. 5. Overall left ventricular systolic function is normal with, an EF between 55 - 60 %. 6. Normal LA size by volume 22+/-6 ml/m2. 7. There is mild aortic valve sclerosis. 8. Trace to mild aortic regurgitation. 9. There is mild aortic stenosis present. 10. Peak/mean gradient across the Aortic Valve is 21.17mmHg / 12.99mmHg. 11. The mitral valve leaflets are mildly thickened. 12. Mild mitral annular calcification present. 13. There is trace to mild mitral regurgitation. 14. Mild tricuspid regurgitation present. 15. There is borderline pulmonary hypertension. 16. The right ventricular systolic pressure, as measured by Doppler, is 37.25mmHg. 17. Trace/mild (physiologic) pulmonic regurgitation. 18. The aortic root size is normal. 19. There is a trivial pericardial effusion present. SALES PRODUCER: Alfred Kaplan RDCS
[2018-03-15 06:51] LABS: Glucose,Whole Blood 248 mg/dL (75-99)
[2018-03-15] MEDS: amLODIPine 5 MG TAB PO SCH (08:30)
[2018-03-15] MEDS: INSULIN ASPART 100 UNIT/ML 1 ML 10 ML VIAL SQ SCH ×2 (08:30→12:12)
[2018-03-15] MEDS: ATENOLOL 25 MG TAB PO SCH (08:30)
[2018-03-15] MEDS: metFORMIN 500 MG TAB PO SCH (08:30)
[2018-03-15] MEDS: ASPIRIN 81 MG PO SCH (08:30)
[2018-03-15] MEDS: HEPARIN SODIUM,PORCINE 5,000 UNIT/ML 1 ML VIAL SQ SCH (08:31)
[2018-03-15] MEDS: LOSARTAN-HCTZ 50-12.5 MG 1 EACH TAB PO SCH (08:31)
[2018-03-15] MEDS: FAMOTIDINE 20 MG/2 ML VIAL IV SCH (08:31)
[2018-03-15] MEDS ORDERED: ASPIRIN 325 MG TAB PO SCH (09:00)
[2018-03-15 10:01] LABS: Glucose,Whole Blood 286 mg/dL (75-99)
[2018-03-15 11:38] VITALS: BP 114/62; RESP 18; TEMP 98.3
[2018-03-15 11:56] LABS: Glucose,Whole Blood 274 mg/dL (75-99)
[2018-03-15 12:11] VITALS: PULSE 92
--- NOTE | 2018-03-15 15:55 | P.DS ---
Providers Date of admission: 03/14/18 02:42 Attending physician: June Valdivia MD Consults: 03/14/18 11:05 Consult Physician Routine Consulting Provider: Harry Chairez Consult Reason/Comments: RIGHT CAROTID ARTERY DX Do you want consulting provider notified?: Already Contacted 03/14/18 13:23 Consult Physician Routine Consulting Provider: Yola Mar Consult Reason/Comments: cardiac consult Do you want consulting provider notified?: Already Contacted Primary care physician: [facility] Course: Date of admission: 01/12/2019 Date of discharge: 01/13/2019 Procedures: None Consultations: Vascular surgery Reason for admission: Syncopal episode and rash Hospital course: He shouldn't is 77-year-old female who was admitted with syncopal episode and erythematosus each E rash diffuse. Patient has history of steroids and iodine contrast with multiple previous similar reactions in the past. EMS was called and the patient suddenly started feeling very weak and lost briefly consciousness for few seconds. She was to follow she was found to be wheezy with blood pressure in 80s and diffuse erythematous rash. Patient states that 5 days prior to admission she had CT angiogram for which she was pretreated with prednisone. She reports having ALLERGIES to both an metal template maker were in the form of diffuse erythematous rash that resisted usually for few weeks. She was transferred to emergency department even IV fluids upon which her blood pressure improved. She cannot have much of the steroids due to ALLERGIC reaction. She was treated with Benadryl and Pepcid. Labwork: Her CBC was normal with normal white blood cell count, liver enzymes bilirubin and alkaline phosphatase all within normal range, creatinine and BUS within normal range and UA without presence of red blood cells or protein. She had elevated eosinophils of 1.1K Today I saw and evaluated the patient. She feels much stronger and energetic. She denies any malaise She does have diffuse erythematosus rash on both of her arms and torso and back and very faint rash on her cheeks. There is no facial edema. She states that these itchy. There is no blistering or skin desquamation or sloughing. There is no involvement of mucosal sites or conjunctiva. There is no shortness of breath or wheezing, tingling of throat or difficulty swallowing. There is no any abdominal pain nausea vomiting or diarrhea. She does not have any swelling of her lymph nodes. She does not have any swollen or painful joints. Her liver enzymes have been normal. Today she reports that the rash is much better comparing to yesterday. She has been getting up without any dizziness or lightheadedness. Chart review shows that her blood pressure this morning is 114/70. She's been afebrile. Her lab work has been stable without any liver or renal abnormalities. Vital Signs: I have reviewed the vital signs. GENERAL: no apparent distress, cooperative Eyes: PERRL, extraoculry movements intact, clear conjunctiva Head: : Atraumatic external nose and ears, oropharyngeal mucosa is moist without lesions or exudates; face with minimal check erythema no swelling Neck: Symmetric, trachea midline, No thyromegaly, no masses or neck vain pulsation, no neck rigidity CVS: +S1/S2, No murmurs or gallops. Peripheral pulses 2+ and equal in all extremities. RESP: Unlabored respiratory effort. Clear to auscultation bilaterally. Abdomen: Bowel sounds present in all 4 quadrants, Soft to palpation, Nontender/ Nondistended, No hepatosplenomegaly, no hernias or masses, no CVA tnderness Musculoskeletal: Extremities w/o deformity, No cyanosis or clubbing, no joint swelling Skin: Warm, Dry. Erythematosus morbilliform diffuse rash on her chest upper back and both arms no involvement of abdomen buttocks or lower extremities Neuro: aquatics manager II-XII grossly intact, motor strenght 5/5 i upper and lower extremities, no clonus, patellar DTRs 2+ and sympetrical Psych: Awake, Alert, & Oriented (AAO) x3 Appropriate mood and affect Disposition: Morbilliform skin eruption probably related to ALLERGY to corticosteroids and iodine contrast Improving with symptomatic treatment Visceral organ or mucosal sites involvement, no systemic symptoms I doubt DRESS syndrome due to inconsistency with temporal relationship of offending agents and clinical manifestation. I doubt any Page-Harlan. Given oral improvement in her skin rash and general improvement in her symptoms we suggested discharging home with family care. Patient and her in the room felt comfortable to be discharged this point. She reported that usually takes 3-4 weeks for rash completely resolved from previous episodes. She has tolerated Benadryl and Pepcid while and we will continue with this. She is to follow-up with her PCP in couple of days. She is to return to emergency department if develops fever joint swelling malaise or worsening of the rash or blistering or skin sloughing. Given low blood pressure on initial presentation softer blood pressures here I suggested to the patient to hold her losartan HCTZ and amlodipine for the next few days and only continue with atenolol and keep an eye on her blood pressures. Medications: Placed on hold: Losartan/HCTZ Amlodipine Medications: Benadryl when necessary Pepcid daily Albuterol inhaler when necessary wheezing or shortness of breath Patient Condition at Discharge: Fair Plan - Discharge Summary Discharge Rx Participant: No New Discharge Prescriptions: New Albuterol Inhaler [Ventolin Hfa Inhaler] 1 - 2 puff INHALATION RT-Q6H PRN #1 inhaler PRN Reason: Shortness Of Breath diphenhydrAMINE HCL [Benadryl] 25 mg PO TID PRN #20 tab PRN Reason: Itching Famotidine [Pepcid] 20 mg PO DAILY #20 tablet Continue glipiZIDE [Glucotrol] 2.5 mg PO HS Aspirin 81 tab PO DAILY Rosuvastatin Calcium 5 mg PO MOWEFR Atenolol [Tenormin] 25 mg PO DAILY metFORMIN HCL [Glucophage] 1,000 mg PO BID Discontinued amLODIPine [Norvasc] 5 mg PO DAILY Losartan-Hctz 50-12.5 mg [Hyzaar 50-12.5] 1 tab PO QAM Discharge Medication List Aspirin 81 tab PO DAILY 02/26/15 [History] glipiZIDE [Glucotrol] 2.5 mg PO HS 02/26/15 [History] Rosuvastatin Calcium 5 mg PO MOWEFR 03/06/18 [History] Atenolol [Tenormin] 25 mg PO DAILY 03/13/18 [History] metFORMIN HCL [Glucophage] 1,000 mg PO BID 03/13/18 [History] Albuterol Inhaler [Ventolin Hfa Inhaler] 1 - 2 puff INHALATION RT-Q6H PRN #1 inhaler 03/15/18 [Rx] Famotidine [Pepcid] 20 mg PO DAILY #20 tablet 03/15/18 [Rx] diphenhydrAMINE HCL [Benadryl] 25 mg PO TID PRN #20 tab 03/15/18 [Rx] Follow up Appointment(s)/Referral(s): Leeroy Blankenship MD [REFERRING] - 1-2 days (pt instructed to make follow up appointment with primary care physician. Office is closed.) Patient Instructions/Handouts: Anaphylaxis (DC), Itchy Skin (DC) Discharge Disposition: HOME SELF-CARE
== END 2018-03-15 15:10 | disposition home or self-care (01) ==
LOC: EC 22:35 → 1SOBS 03-14 02:42 → 2ORMAIN 03-14 07:02 → 1SOBS 03-14 14:24
PROVIDERS: ADMIT Internal Medicine; ATTEND Internal Medicine
DX: L27.0 Generalized skin eruption due to drugs and medicaments taken internally (principal); R55 Syncope and collapse; R06.02 Shortness of breath; R06.2 Wheezing; L50.9 Urticaria, unspecified; I95.9 Hypotension, unspecified; I10 Essential (primary) hypertension; E78.5 Hyperlipidemia, unspecified; E11.51 Type 2 diabetes mellitus with diabetic peripheral angiopathy without gangrene; I25.10 Atherosclerotic heart disease of native coronary artery without angina pectoris; I25.82 Chronic total occlusion of coronary artery; I70.8 Atherosclerosis of other arteries; I65.23 Occlusion and stenosis of bilateral carotid arteries; Z79.84 Long term (current) use of oral hypoglycemic drugs; Z79.899 Other long term (current) drug therapy; Z79.82 Long term (current) use of aspirin; Z90.710 Acquired absence of both cervix and uterus; Z91.041 Radiographic dye allergy status; Z88.0 Allergy status to penicillin; Z88.6 Allergy status to analgesic agent; Z88.2 Allergy status to sulfonamides; Z88.8 Allergy status to other drugs, medicaments and biological substances; Z91.048 Other nonmedicinal substance allergy status; E66.9 Obesity, unspecified; Z68.30 Body mass index [BMI] 30.0-30.9, adult; Z87.891 Personal history of nicotine dependence; Z80.9 Family history of malignant neoplasm, unspecified; Z81.2 Family history of tobacco abuse and dependence
CPT/HCPCS: 96372 ×2; 96375 ×2; 96376 ×2; 96361; 96374; 99285; 36415; 94640 ×4; 94760; 93005; 93306; 80061; 80053; 82550; 82553; 84484; 85025; 83036; 71045; G0378 ×2; J2060; J1200 ×2; J1644 ×2; J1100

== ENCOUNTER → 2018-04-16 | Outpatient (CLI) | payer MEDICARE ==
[2018-04-16 13:30] LABS: HCT 43.7 % (34.0-46.0); HGB 14.2 gm/dL (11.4-16.0); MCH 30.5 pg (25.0-35.0); MCHC 32.6 g/dL (31.0-37.0); MCV 93.8 fL (80.0-100.0); Mean Platelet Volume 7.9; Platelet Count 184 k/uL (150-450); RBC 4.66 m/uL (3.80-5.40); RDW 13.7 % (11.5-15.5); WBC 6.9 k/uL (3.8-10.6)
[2018-04-16 13:41] LABS: Potassium 4.9 mmol/L (3.5-5.1)
== END ==
LOC: LABPAT 12:49
PROVIDERS: ATTEND Internal Medicine Interventional Cardiology
DX: Z01.812 Encounter for preprocedural laboratory examination (principal); I65.23 Occlusion and stenosis of bilateral carotid arteries; I73.9 Peripheral vascular disease, unspecified
CPT/HCPCS: 36415; 80051; 82565; 84520; 85027

== ENCOUNTER 2018-04-30 07:33 | Day surgery (SDC) | payer MEDICARE ==
[2018-04-24 15:31] VITALS: BMI 29.0
[~2018-04-30 07:33] MED LIST changes: +ASPIRIN 325 MG TAB PO STA; -ASPIRIN 81 MG ONE; -ATROPINE SULFATE 0.1 MG/ML 10ML SYRINGE ONE; -IOPAMIDOL-250 50ML BTL IV ONE; -IOPAMIDOL-370 100ML BTL INJ ONE; -IOPAMIDOL-370 125ML BTL INJ ONE; -LIDOCAINE 1% INJ 10MG/ML (20 ML MDV) SQ ONE; -MIDAZOLAM 2 MG/2 ML VIAL IVP ONE; -SODIUM CHLORIDE 0.9% 1,000 ML IV SCH; -fentaNYL (PF) 50 MCG/ML 2 ML AMP IVP ONE
[2018-04-30 08:21] LABS: Glucose,Whole Blood 162 mg/dL (75-99)
[2018-04-30] MEDS ORDERED: ALPRAZolam 0.25 MG TAB PO ONE (09:00)
[2018-04-30] MEDS ORDERED: MIDAZOLAM 2 MG/2 ML VIAL IVP ONE (09:35)
[2018-04-30] MEDS ORDERED: LIDOCAINE 1% INJ 10MG/ML (20 ML MDV) SQ ONE (09:47)
[2018-04-30] MEDS: HEPARIN SODIUM 1,000 UN/ML (10ML VL) IV ONE ×2 (09:52→11:02)
[2018-04-30] MEDS: fentaNYL (PF) 50 MCG/ML 2 ML AMP IV ONE ×4 (09:52→11:12)
[2018-04-30] MEDS: MIDAZOLAM 2 MG/2 ML VIAL IVP ONE ×2 (10:49→11:36)
[2018-04-30] MEDS ORDERED: CLOPIDOGREL 75 MG TAB PO ONE (11:08)
[2018-04-30] MEDS ORDERED: HEPARIN SODIUM 1,000 UN/ML (10ML VL) IV ONE (12:16)
[2018-04-30] MEDS ORDERED: RX INFO: IV CONTRAST WAS GIVEN 1 EACH MISC MISCELLANE PRN (12:22)
[2018-04-30] MEDS ORDERED: MAG HYDROX/AL HYDROX/SIMETH 30 ML CUP PO PRN (12:22)
[2018-04-30] MEDS ORDERED: NITROGLYCERIN SL TABS 0.4 MG TAB SUBLINGUAL PRN (12:22)
[2018-04-30] MEDS ORDERED: ATROPINE SULFATE 0.1 MG/ML 10ML SYRINGE IV PRN (12:22)
[2018-04-30] MEDS ORDERED: ROSUVASTATIN CALCIUM 5 MG PO SCH (12:30)
[2018-04-30] MEDS ORDERED: SODIUM CHLORIDE 0.9% 1,000 ML IV SCH (12:30)
--- NOTE | 2018-04-30 12:48 | LTR ---
April 30, 2018 Re: Bisi Mace Dear Dr. Cutler: Ms. Bisi Mace underwent successful balloon angioplasty and stenting of her left iliac artery with good angiographic results and without any complication. Thank you for allowing us to participate in her care and please do not hesitate to call if you have any question or concern. Sincerely, Devan Kumar MD MMMICHAELL / NATHANN: [id number] /
--- NOTE | 2018-04-30 13:18 | AN ---
ANGIOGRAPHY REPORT DATE OF SERVICE: 04/30/2018. PERFORMING PHYSICIAN: Devan Kumar MD, Meter Reader. PROCEDURE PERFORMED: 1. Selective left common femoral artery and left external iliac artery angiogram. 2. 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 3. Successful balloon angioplasty and stenting of the left external iliac artery. 4. Successful balloon angioplasty and stenting of the left common femoral artery. 5. Intravascular ultrasound IVUS of the left common femoral artery. 6. Selective right common femoral artery angiogram. INDICATION: This is a pleasant 77-year-old female patient who sees Dr. Wesley Mar in the office as an outpatient who was experiencing symptoms of left leg intermittent claudication but she underwent a peripheral angiogram a few weeks ago and that revealed occluded left iliac artery and severe disease involving the left common femoral artery. She was brought today to undergo an intervention. APPROACH: Right common femoral artery. COMPLICATION: None. LEVEL OF SEDATION: Moderate with sedation length of 208 minutes. PROCEDURE DESCRIPTION: After obtaining an informed consent, the patient was brought to the cardiac engineering lab technician. The right common femoral artery was cannulated using micropuncture technique, the micropuncture wire passed easily, then I placed an 11 cm 6-Bangladeshi sheath in the right common femoral artery. At that point, anticoagulation was initiated using heparin. At the beginning, the patient was given 10,000 units of heparin IV. Continuous ACT monitoring was done throughout the procedure and the patient was given additional 3000 units in the middle of the procedure and additional 2000 at the end of the procedure and this is all following her ACT. I did select the left internal iliac artery using .035 Glidewire with a 5-Bangladeshi Rim catheter. After that, I did exchange my 11 cm 6-Bangladeshi sheath into 55 cm 6-Bangladeshi sheath using a ,035 glide wire. The tip of the sheath was positioned at the left common iliac artery just above the bifurcation into the internal and external. Subsequently, I did cross the chronic total occlusion of the left external iliac artery using .035 stiff Glidewire with .035 [place] Blazer catheter. The wire was advanced all the way to the left SFA and I did selective left SFA angiogram using CO2 to prove that I was in the true lumen. After that. I did balloon angioplasty of the left external iliac artery using initially 5 mm x 20 mm balloon subsequently I deployed 7 x 120 mm self expandable stent in the left external iliac artery where the stent was positioned under fluoroscopy guidance and then deployed under fluoroscopy guidance. After that. I post-dilated the stent using 7 mm balloon. The following angiogram showed good angiographic results of the lesion in the left external iliac artery. There was some concerning at the distal edge of the stent by the mid of the left common femoral artery. Because of that, I decided to IVUS that lesion. I did intravascular ultrasound IVUS using a whisper wire after I did exchange my .035 wire to .014 wire using .035 catheter that IVUS showed large area of dissection involving the left common femoral artery and seems to be flow-limiting and because of that, I decided to do balloon which I did balloon, but the lesion continues to be there, so I decided to cover that with a stent and I deployed a 6 x 40 mm Zilver PTX drug-coated stent where the stent was positioned under fluoroscopy guidance and deployed under fluoroscopy guidance. After that, I post-dilated the area of overlap between the 2 stents using initially 6 mm and then 7 mm balloon. Finally, the final angiogram using CO2 showed excellent angiographic results with good flow in the SFA and profunda. The patient on the previous angiogram did show that she has a lesion in the right common iliac artery and because of that and because I had the IVUS open, I did IVUS of the right common iliac artery and that came into be non-significant. Finally, I did exchange my long sheath into short sheath using .035 wire and I did selective right common femoral artery to assess my access site. The procedure was completed without any complication. POSTPROCEDURE MANAGEMENT: 1. Dual anti-platelet therapy. 2. Risk factors modifications. 3. Follow up with the patient. MMODL / IJN: [id number] /
[2018-04-30] MEDS ORDERED: HYDROmorphone 0.5 MG/0.5 ML SYRINGE IVP STA ×2 (13:43→17:25)
[2018-04-30] MEDS ORDERED: ACETAMINOPHEN TAB 325 MG TAB PO PRN (13:44)
[2018-04-30] MEDS ORDERED: HYDROmorphone 1 MG/ML 1 ML SYRINGE ONE (13:52)
[2018-04-30] MEDS ORDERED: HYDROmorphone 0.5 MG/0.5 ML SYRINGE IVP ONE (14:05)
[2018-04-30 17:19] LABS: Glucose,Whole Blood 124 mg/dL (75-99)
[2018-04-30] MEDS ORDERED: ZOLPIDEM 5 MG TAB PO PRN (21:00)
[2018-04-30 21:11] LABS: Glucose,Whole Blood 112 mg/dL (75-99)
[2018-04-30 22:31] VITALS: RESP 18
[2018-05-01 06:09] LABS: Glucose,Whole Blood 111 mg/dL (75-99)
[2018-05-01 07:48] LABS: Basophils # (A) 0.1 k/uL (0-0.2); Basophils % (A) 1 %; Eosinophils # (A) 0.2 k/uL (0-0.7); Eosinophils % (A) 3 %; HCT 41.2 % (34.0-46.0); Lymphocytes % (A) 23 %; MCH 29.2 pg (25.0-35.0); MCHC 31.5 g/dL (31.0-37.0); MCV 92.7 fL (80.0-100.0); Monocytes # (A) 0.6 k/uL (0-1.0); Monocytes % (A) 7 %; Neutrophils # (A) 5.6 k/uL (1.3-7.7); Neutrophils % (A) 65 %; Platelet Count 156 k/uL (150-450); RBC 4.44 m/uL (3.80-5.40); RDW 13.4 % (11.5-15.5); WBC 8.6 k/uL (3.8-10.6)
--- NOTE | 2018-05-01 07:53 | IR ---
EXAMINATION TYPE: IR stent intravas non coronary DATE OF EXAM: 04/30/2018 CLINICAL HISTORY: Peripheral vascular disease. TECHNIQUE: Fluoroscopy. COMPARISON: None. FINDINGS: Fluoroscopic guidance was provided during pelvic catheter angiogram with stent placement p rocedure performed by Dr. Kumar. A total of 58.5 minutes of fluoroscopic time was utilized during the procedure and 26 cine runs are performed. Please refer to procedure note for further details as I wa s not present nor performed procedure. IMPRESSION: As Above.
[2018-05-01 08:10] LABS: Calcium 9.4 mg/dL (8.4-10.2); Potassium 4.5 mmol/L (3.5-5.1)
[2018-05-01] MEDS ORDERED: CLOPIDOGREL 75 MG TAB PO SCH (09:00)
[2018-05-01] MEDS ORDERED: ATENOLOL 25 MG TAB PO SCH (09:00)
[2018-05-01] MEDS ORDERED: ASPIRIN 81 MG PO SCH (09:00)
[2018-05-01] MEDS ORDERED: amLODIPine 2.5 MG TAB PO SCH (09:00)
[2018-05-01 09:53] VITALS: BP 184/79; PULSE 73; TEMP 98
--- NOTE | 2018-05-01 11:40 | DS ---
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 The procedure was performed from the right groin which is soft and nontender and without any bruises. The patient is going to be discharged home on dual anti-platelet therapy and I will follow up with the patient in a week in the office. MMMICHAELL / NATHANN: [id number] /
== END 2018-05-01 11:49 | disposition home or self-care (01) ==
LOC: CATHCVL 07:33 → 3SCARD 16:14 → CATHCVL 05-01 11:49
PROVIDERS: ATTEND Internal Medicine Interventional Cardiology
DX: I70.212 Atherosclerosis of native arteries of extremities with intermittent claudication, left leg (principal); I65.23 Occlusion and stenosis of bilateral carotid arteries; I70.92 Chronic total occlusion of artery of the extremities; E78.5 Hyperlipidemia, unspecified; E11.51 Type 2 diabetes mellitus with diabetic peripheral angiopathy without gangrene; I25.10 Atherosclerotic heart disease of native coronary artery without angina pectoris; I10 Essential (primary) hypertension; Z79.82 Long term (current) use of aspirin; Z79.84 Long term (current) use of oral hypoglycemic drugs; Z79.899 Other long term (current) drug therapy; Z82.49 Family history of ischemic heart disease and other diseases of the circulatory system; Z72.0 Tobacco use; Z88.8 Allergy status to other drugs, medicaments and biological substances; Z88.6 Allergy status to analgesic agent; Z91.041 Radiographic dye allergy status; Z88.0 Allergy status to penicillin; Z88.2 Allergy status to sulfonamides; Z91.048 Other nonmedicinal substance allergy status; Z79.891 Long term (current) use of opiate analgesic
CPT/HCPCS: 37221; 37226; 85347; 37252; 80048; 85025; C1894; C1769 ×6; C1725 ×2; C1753; C2623; C1876; C1874; J2250; J2001; J3010; J1644; J1170; 37223

== ENCOUNTER → 2018-06-17 | Outpatient (CLI) | payer MEDICARE ==
[2018-06-17 14:59] LABS: Potassium 5.4 mmol/L (3.5-5.1)
[2018-06-17 15:04] LABS: HGB 14.8 gm/dL (11.4-16.0); MCH 29.5 pg (25.0-35.0); MCHC 32.2 g/dL (31.0-37.0); MCV 91.4 fL (80.0-100.0); Mean Platelet Volume 7.4; Platelet Count 224 k/uL (150-450); RBC 5.03 m/uL (3.80-5.40); RDW 13.4 % (11.5-15.5); WBC 7.7 k/uL (3.8-10.6)
== END | disposition home or self-care (01) ==
LOC: LABWHC1 13:45
PROVIDERS: ATTEND Internal Medicine Interventional Cardiology
DX: Z01.812 Encounter for preprocedural laboratory examination (principal); I10 Essential (primary) hypertension; I73.9 Peripheral vascular disease, unspecified; I65.23 Occlusion and stenosis of bilateral carotid arteries
CPT/HCPCS: 36415; 80051; 82565; 84520; 85027

== ENCOUNTER 2018-07-02 06:06 | Day surgery (SDC) | payer MEDICARE ==
[2018-06-26 12:39] VITALS: BMI 29.2
[2018-07-02] MEDS ORDERED: SODIUM CHLORIDE 0.9% 1,000 ML in EMPTY BAG 1 BAG IV ONE (06:26)
[2018-07-02 07:15] LABS: Glucose,Whole Blood 158 mg/dL (75-99)
[2018-07-02] MEDS: MIDAZOLAM (PF) 2 MG/2 ML VIAL IV ONE ×2 (08:53→08:59)
[2018-07-02] MEDS ORDERED: IV FLUID CONTINUATION 1,000 ML IV ONE (08:54)
[2018-07-02] MEDS: LIDOCAINE 1% INJ 10MG/ML (20 ML MDV) SQ ONE ×2 (09:09→09:45)
[2018-07-02] MEDS ORDERED: MIDAZOLAM (PF) 2 MG/2 ML VIAL IV ONE (09:24)
[2018-07-02] MEDS: fentaNYL (PF) 50 MCG/ML 2 ML AMP IV ONE ×2 (09:24→09:47)
[2018-07-02] MEDS ORDERED: LIDOCAINE 1% INJ 10MG/ML (20 ML MDV) SQ ONE (09:48)
[2018-07-02] MEDS ORDERED: HYDROmorphone 1 MG/ML 1 ML SYRINGE IVP ONE (09:57)
[2018-07-02] MEDS ORDERED: SODIUM CHLORIDE 0.9% 1,000 ML IV SCH (11:00)
[2018-07-02] MEDS ORDERED: ROSUVASTATIN CALCIUM PO SCH (11:00)
--- NOTE | 2018-07-02 11:39 | LTR ---
DATE OF SERVICE: 07/02/2018 RE: Bisi Mace. Dear Dr. Olmstead; Mrs. Bisi Mace underwent successful stenting of the right iliac artery with good angiographic results and without any complication. Thank you for allowing us to participate in her care and please do not hesitate to call if you have any questions or concerns. Sincerely, MD EDIE Zarco / NATHANN: [phone] /
--- NOTE | 2018-07-02 12:00 | PTCA ---
PERCUTANEOUSTRANS CORORONARY ANGIOGRAPHY DATE OF SERVICE: 07/02/2018 PERFORMING PHYSICIAN: Devan Kumar MD, Stallion Manager. PROCEDURE PERFORMED: 1. Selective right SFA angiogram. 2. Intravascular ultrasound IVUS of the right SFA. 3. Selective bilateral iliac artery angiogram. 4. Gradient measurement across the right common and right external iliac artery. 5. Successful kissing stents of the right and left common iliac arteries with an excellent angiographic results using balloon expandable stent. 6. Successful stenting of the right external iliac artery using self-expandable stent with an excellent angiographic results. INDICATION: This is a pleasant 78-year-old female patient who sees Dr. 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 She underwent stenting of the left iliac artery and she was brought today to undergo stenting of the right iliac artery. She is also known to have intermediate to severe disease involving the right SFA, which was addressed today. APPROACH: 1. Right brachial artery. 2. Right common femoral artery. COMPLICATION: None. LEVEL OF SEDATION: Moderate with sedation length of 1 hour and 39 minutes. PROCEDURE DESCRIPTION: After obtaining an informed consent, the patient was brought to the cardiac mine laborer. The right brachial artery was cannulated using micropuncture technique and a micropuncture wire passed easily, then I placed an 11 cm 6-Thai sheath in the right brachial artery. After that, I did select the right SFA using 0.035 [place] Advantage wire. Subsequently, I did exchange my 11 cm 6-Thai sheath into 110 cm 6-Thai sheath using a 0.035 [place] Advantage wire. The sheath was advanced all the way to the right SFA. At that point, anticoagulation was initiated using heparin and the patient was given 7000 units of heparin IV with continuous ACT monitoring throughout the procedure. After that, I did exchange my 0.035 wire into 0.014 wire and I did after that an intravascular ultrasound IVUS of the right SFA which showed only intermediate disease about 60%. Because of that, I decided to defer treatment of the right SFA. After that, I did selective bilateral iliac artery angiogram which revealed severe disease involving the ostial of the right common iliac artery as well as right external iliac artery. At that point, I did pressure gradient across it and that came into be significant. Because of that, I decided to stent that. Because I need to do a kissing technique I had to access the right common femoral artery where I can place the stent in the right common iliac artery from right femoral approach and placed a stent of the left common iliac artery from right brachial approach. So I did access the right common femoral artery using micropuncture technique under ultrasound guidance, the micropuncture wire passed easily, then I placed a 23 cm right tip sheath in the right common femoral artery. After that, I did balloon angioplasty of both iliacs using 7 mm x 20 mm balloon before I deployed 2 stents with 9.0 x 29 mm in both iliac arteries, where the stent were positioned under fluoroscopy guidance and deployed in a kissing technique. The following angiogram showed excellent angiographic results. For the right external iliac artery, I deployed 8 x 100 Zilver PTX drug-coated stent where the stent again was positioned under fluoroscopy guidance and deployed under fluoroscopy guidance. Then, I post-dilated the 7 mm balloon. The following angiogram showed excellent angiographic results and the procedure was completed without any complication. POSTPROCEDURE MANAGEMENT: 1. Dual anti-platelet therapy. 2. Risk factor modifications. 3. Follow up with the patient. MMODL / IJN: [id number] /
--- NOTE | 2018-07-02 13:23 | IR ---
EXAMINATION TYPE: IR stent intravas non coronary DATE OF EXAM: 07/02/2018 COMPARISON: NONE HISTORY: Fluoroscopy time. Fluoroscopy was provided to the referring clinician.
[2018-07-02 16:51] LABS: Glucose,Whole Blood 175 mg/dL (75-99)
[2018-07-02] MEDS: HYDROmorphone 0.5 MG/0.5 ML SYRINGE IVP PRN (18:21)
[2018-07-02 21:05] LABS: Glucose,Whole Blood 199 mg/dL (75-99)
[2018-07-03 06:15] LABS: Glucose,Whole Blood 120 mg/dL (75-99)
[2018-07-03 06:35] VITALS: TEMP 98.1
[2018-07-03] MEDS: HYDROmorphone 0.5 MG/0.5 ML SYRINGE IVP PRN (06:43)
[2018-07-03 07:19] LABS: Basophils % (A) 1 %; Eosinophils # (A) 0.3 k/uL (0-0.7); Eosinophils % (A) 4 %; HCT 40.3 % (34.0-46.0); Lymphocytes # (A) 1.5 k/uL (1.0-4.8); Lymphocytes % (A) 21 %; MCH 29.7 pg (25.0-35.0); MCHC 32.3 g/dL (31.0-37.0); Mean Platelet Volume 7.4; Monocytes # (A) 0.5 k/uL (0-1.0); Monocytes % (A) 8 %; Neutrophils # (A) 4.5 k/uL (1.3-7.7); Neutrophils % (A) 64 %; Platelet Count 161 k/uL (150-450); RBC 4.38 m/uL (3.80-5.40); RDW 13.6 % (11.5-15.5)
[2018-07-03 07:24] LABS: Calcium 9.4 mg/dL (8.4-10.2); Potassium 4.5 mmol/L (3.5-5.1)
[2018-07-03] MEDS ORDERED: amLODIPine 2.5 MG TAB PO SCH (09:00)
[2018-07-03] MEDS ORDERED: ASPIRIN 81 MG PO SCH (09:00)
[2018-07-03] MEDS ORDERED: ATENOLOL 25 MG TAB PO SCH (09:00)
[2018-07-03] MEDS ORDERED: CLOPIDOGREL 75 MG TAB PO SCH (09:00)
--- NOTE | 2018-07-03 09:54 | P.PN ---
Subjective Progress Note Date: 07/03/18 Discharge note This is a pleasant 78-year-old female who follows with Dr. Alton Mar in the office. 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 Patient did undergo stenting of the left iliac artery and was brought into the hospital yesterday to undergo stenting of the right iliac artery. She is also known to have intermediate to severe disease involving the right SFA. Patient underwent successful stenting of the right and left common iliac arteries as well as successful stenting of the right external iliac artery. She was seen and examined this morning and is doing well. Blood pressure 148/70 with a heart rate in the 60s, 98% on room air. White blood cell count 7.0, hemoglobin 15, platelet count 161. Sodium 142, potassium 4.5, BUN 19 and creatinine 0.8. Objective - Vital Signs Vital signs: Vital Signs Temp 98.1 F 07/03/18 06:34 Pulse 60 07/03/18 06:34 Resp 16 07/03/18 06:34 BP 148/77 07/03/18 06:34 Pulse Ox 96 07/03/18 06:34 Intake & Output 07/02/18 07/03/18 07/03/18 18:59 06:59 18:59 Intake Total 200 400 380 Balance 200 400 380 Weight 74.6 kg Intake: IV 100 Sodium Chloride 0.9% 1, 100 000 ml @ 100 mls/hr IV . Q10H [facility] Rx#:[id number] Intake, IV Titration 100 400 Amount Sodium Chloride 0.9% 1, 100 400 000 ml @ 100 mls/hr IV . Q10H [facility] Rx#:[id number] Oral 380 Other: # Voids 1 2 1 - Exam PHYSICAL EXAMINATION: GENERAL: 78-year-old female in no acute distress at the time of my examination HEENT: Head is atraumatic, normocephalic. Pupils equal, round. Sclera anicteric. Conjunctiva are clear. Mucous membranes of the mouth are moist. Neck is supple. There is no elevated jugular venous pressure. No carotid bruit is heard. HEART EXAMINATION: S1 and S2 1 systolic murmur is heard. CHEST EXAMINATION: Lungs are clear to auscultation and precussion. No chest wall tenderness is noted on palpation or with deep breathing. ABDOMEN: Soft, nontender. Bowel sounds are heard. No organomegaly noted. EXTREMITIES: 2+ peripheral pulses with no evidence of peripheral edema and no calf tenderness noted. Right groin is soft with no evidence of any hematoma. Right brachial site has small amount of ecchymosis, good distal pulse. NEUROLOGIC patient is awake, alert and oriented 3 . . - Labs CBC & Chem 7: 07/03/18 06:50 07/03/18 06:50 Labs: Abnormal Lab Results - Last 24 Hours (Table) 07/02/18 07/02/18 07/03/18 Range/Units 16:45 21:03 06:14 BUN (7-17) mg/dL Glucose (74-99) mg/dL POC Glucose (mg/dL) 175 H 199 H 120 H (75-99) mg/dL 07/03/18 Range/Units 06:50 BUN 19 H (7-17) mg/dL Glucose 131 H (74-99) mg/dL POC Glucose (mg/dL) (75-99) mg/dL Assessment and Plan Plan: Assessment and plan #1 status post stenting of the right and left common iliac arteries, successful stenting of the right external iliac artery. #2 hypertension #3 diabetes #4 hyperlipidemia Plan Patient may be able to be discharged home today. We'll make her follow-up appointment to see Dr. RUBIN Mar in the office post discharge. Patient will be discharged home on Norvasc 2-1/2 mg daily, aspirin 81 mg daily, Tenormin 25 mg daily, Plavix 75 mg daily, Glucotrol 2-1/2 mg daily, Crestor 10 mg. DNP note has been reviewed, I agree with a documented findings and plan of care. Patient was seen and examined.
[2018-07-03 10:06] VITALS: BP 133/71; PULSE 59; RESP 20
== END 2018-07-03 11:23 | disposition home or self-care (01) ==
LOC: CATHCVL 06:06 → 3SCARD 15:06 → CATHCVL 07-03 11:23
PROVIDERS: ATTEND Internal Medicine Interventional Cardiology
DX: I73.9 Peripheral vascular disease, unspecified (principal); I70.0 Atherosclerosis of aorta; I65.23 Occlusion and stenosis of bilateral carotid arteries; I71.02 Dissection of abdominal aorta; I10 Essential (primary) hypertension; Z72.0 Tobacco use; Z95.820 Peripheral vascular angioplasty status with implants and grafts; E78.5 Hyperlipidemia, unspecified; E11.9 Type 2 diabetes mellitus without complications; Z82.49 Family history of ischemic heart disease and other diseases of the circulatory system; Z79.84 Long term (current) use of oral hypoglycemic drugs; Z79.82 Long term (current) use of aspirin; Z79.52 Long term (current) use of systemic steroids; Z79.899 Other long term (current) drug therapy; Z88.6 Allergy status to analgesic agent; Z88.8 Allergy status to other drugs, medicaments and biological substances
CPT/HCPCS: 37221; 37223; 37252; 80048; 84132; 85025; C1894 ×4; C1725 ×2; C1876; C1769 ×5; C1753; J2001; J3010; J1170 ×3; J1644; J2250

== ENCOUNTER → 2019-03-23 | Outpatient (CLI) | payer MEDICARE ==
[2019-03-23 12:11] LABS: Potassium 4.8 mmol/L (3.5-5.1)
[2019-03-23 12:19] LABS: HCT 44.8 % (34.0-46.0); HGB 14.4 gm/dL (11.4-16.0); MCH 29.9 pg (25.0-35.0); MCHC 32.2 g/dL (31.0-37.0); MCV 92.9 fL (80.0-100.0); Mean Platelet Volume 8.2; Platelet Count 188 k/uL (150-450); RBC 4.82 m/uL (3.80-5.40); RDW 13.1 % (11.5-15.5); WBC 8.8 k/uL (3.8-10.6)
== END | disposition home or self-care (01) ==
LOC: LABPAT 11:14
PROVIDERS: ATTEND Internal Medicine Interventional Cardiology
DX: Z01.812 Encounter for preprocedural laboratory examination (principal); I70.213 Atherosclerosis of native arteries of extremities with intermittent claudication, bilateral legs
CPT/HCPCS: 80051; 82565; 84520; 85027

== ENCOUNTER → 2019-04-01 | Day surgery (SDC) | payer MEDICARE ==
[2019-03-25 15:44] VITALS: BMI 29.2
[~2019-04-01] MED LIST changes: +ASPIRIN 325 MG TAB PO ONE; -ASPIRIN 325 MG TAB PO STA; +ATROPINE SULFATE 0.1 MG/ML 10ML SYRINGE IVP ONE; +ENALAPRILAT 1.25 MG/ML 1 ML VIAL IVP ONE; +HYDROmorphone 1 MG/ML 1 ML SYRINGE IVP ONE; +LIDOCAINE 1% INJ 10MG/ML (20 ML MDV) SQ ONE; +MIDAZOLAM 2 MG/2 ML VIAL IVP ONE; +ONDANSETRON 4 MG/2 ML VIAL IVP ONE; +SODIUM CHLORIDE 0.9% 1,000 ML IV SCH; +hydrALAZINE HCL 20 MG/ML 1 ML VIAL IV ONE
[2019-04-01 07:50] VITALS: TEMP 98.2
[2019-04-01 07:52] LABS: Glucose,Whole Blood 140 mg/dL (75-99)
--- NOTE | 2019-04-01 11:13 | AN ---
ANGIOGRAPHY REPORT DATE OF SERVICE: 04/01/2019 PERFORMING PHYSICIAN: Devan Kumar MD. PROCEDURE PERFORMED: 1. An abdominal aortogram. 2. Bilateral lower extremities runoff. INDICATION: This is a 78-year-old female patient who sees Dr. Cutler as well as Dr. Mar as an outpatient with history of peripheral arterial disease and prior stenting of bilateral iliac arteries and also known severe disease involving the SFA bilaterally was experiencing symptoms of bilateral lower extremities intermittent claudication. She was seen by Dr. Mar who referred the patient to me for further evaluation. APPROACH: Right common femoral artery. COMPLICATION: None. LEVEL OF SEDATION: Moderate with sedation length of 21 minutes. Contrast use 0 and we used CO2 only. PROCEDURE DESCRIPTION: After obtaining an informed consent, the patient was brought to the cardiac senior label specialist. The right common femoral artery was cannulated using micropuncture technique, the micropuncture wire passed easily, then I placed a 5-Albanian sheath in the right common femoral artery. At that point I gave the patient I did an abdominal aortogram and bilateral lower extremities runoff using CO2. The procedure was completed without any complication. SELECTIVE PERIPHERAL ANGIOGRAM: 1. The aorta appeared to have mild disease only. 2. Common iliac arteries; both are stented and the stent are patent. 3. Internal iliac arteries; both are patent. 4. External iliac arteries' both are stented and the stent are patent. 5. Common femoral arteries both appear to have mild disease only. 6. The profunda appeared to be patent. 7. SFA the right and left SFA appeared to be diseased in the range of 70%. 8. Popliteal: Both popliteals appeared to be patent popliteals appeared to be appeared to have a well the right popliteal appeared to have mild disease only. The left popliteal was not well visualized but appeared to have mild disease only. 9. Below the knee there are 3 vessel runoff below the knee bilaterally. CONCLUSION: 1. Pain is mild and #1 , mild aortoiliac disease. 2. Patent stents in both common iliac and external iliac arteries. 3. Severe femoral-popliteal disease bilaterally. 4. Three vessel runoff below the knee bilaterally. POSTPROCEDURE MANAGEMENT: 1. The patient will be scheduled to undergo a SAP DIRECTOR of the right and left SFA. 2. Follow up with the patient. MMODL / IJN: [id number] /
[2019-04-01 11:31] VITALS: RESP 16
[2019-04-01 15:31] VITALS: BP 123/60; PULSE 54
--- NOTE | 2019-04-01 16:09 | IR ---
Fluoroscopy HISTORY: Peripheral vascular occlusive disease 2.2 minutes fluoroscopy time supplied to the referring clinician. 337 intraoperative C-arm images do cument the procedure. See dictated report from cardiology.
== END ==
LOC: CATHCVL 07:22
PROVIDERS: ATTEND Internal Medicine Interventional Cardiology
DX: I70.213 Atherosclerosis of native arteries of extremities with intermittent claudication, bilateral legs (principal); I70.0 Atherosclerosis of aorta; E11.51 Type 2 diabetes mellitus with diabetic peripheral angiopathy without gangrene; I10 Essential (primary) hypertension; I65.23 Occlusion and stenosis of bilateral carotid arteries; E78.5 Hyperlipidemia, unspecified; F17.210 Nicotine dependence, cigarettes, uncomplicated; Z95.820 Peripheral vascular angioplasty status with implants and grafts; Z79.82 Long term (current) use of aspirin; Z79.84 Long term (current) use of oral hypoglycemic drugs; Z79.02 Long term (current) use of antithrombotics/antiplatelets; Z91.041 Radiographic dye allergy status; Z88.6 Allergy status to analgesic agent; Z88.0 Allergy status to penicillin; Z88.2 Allergy status to sulfonamides; Z88.8 Allergy status to other drugs, medicaments and biological substances; Z91.048 Other nonmedicinal substance allergy status; Z82.49 Family history of ischemic heart disease and other diseases of the circulatory system
CPT/HCPCS: 36200; 75625; 75716; C1769 ×4; C1894; J2250; J0360; J2405; J2001; J0461; J1170

== ENCOUNTER 2019-04-30 08:27 | Day surgery (SDC) | payer MEDICARE ==
[2019-04-28 13:15] VITALS: BMI 28.7
[~2019-04-30 08:27] MED LIST changes: +ALPRAZolam 0.5 MG TAB PO PRN; -ASPIRIN 325 MG TAB PO ONE; +ASPIRIN 325 MG TAB PO STA; -ATROPINE SULFATE 0.1 MG/ML 10ML SYRINGE IVP ONE; -ENALAPRILAT 1.25 MG/ML 1 ML VIAL IVP ONE; -HYDROmorphone 1 MG/ML 1 ML SYRINGE IVP ONE; -LIDOCAINE 1% INJ 10MG/ML (20 ML MDV) SQ ONE; -MIDAZOLAM 2 MG/2 ML VIAL IVP ONE; -ONDANSETRON 4 MG/2 ML VIAL IVP ONE; -SODIUM CHLORIDE 0.9% 1,000 ML IV SCH; +ZOLPIDEM 5 MG TAB PO PRN; -hydrALAZINE HCL 20 MG/ML 1 ML VIAL IV ONE
[2019-04-30] MEDS ORDERED: SODIUM CHLORIDE 0.9% 1,000 ML IV ONE (09:00)
[2019-04-30 09:29] LABS: Glucose,Whole Blood 162 mg/dL (75-99)
[2019-04-30] MEDS ORDERED: ONDANSETRON 4 MG/2 ML VIAL ONE (10:16)
[2019-04-30] MEDS ORDERED: fentaNYL (PF) 50 MCG/ML 2 ML AMP ONE (10:16)
[2019-04-30] MEDS ORDERED: MIDAZOLAM 2 MG/2 ML VIAL ONE (10:16)
[2019-04-30] MEDS ORDERED: HEPARIN SODIUM,PORCINE 10,000 UNIT/ML 1 ML VIAL ONE (10:16)
[2019-04-30] MEDS ORDERED: PROPOFOL 10 MG/ML 20 ML VIAL IV ONE (10:16)
[2019-04-30] MEDS ORDERED: LIDOCAINE 1% INJ 10MG/ML (20 ML MDV) SQ ONE (10:59)
[2019-04-30] MEDS ORDERED: VERAPAMIL SYRINGE (5 MG/10 ML) INTRAARTER ONE (11:02)
[2019-04-30] MEDS ORDERED: CLOPIDOGREL 75 MG TAB PO ONE (11:59)
[2019-04-30] MEDS ORDERED: SODIUM CHLORIDE 0.9% 1,000 ML in EMPTY BAG 1 BAG IV SCH (12:15)
[2019-04-30 12:29] LABS: Glucose,Whole Blood 110 mg/dL (75-99)
--- NOTE | 2019-04-30 12:39 | AN ---
ANGIOGRAPHY REPORT DATE OF SERVICE: April 30, 2019 PERFORMING PHYSICIAN: Devan Kumar MD. PROCEDURE PERFORMED: 1. Bilateral lower extremity angiogram. 2. Atherectomy of bilateral SFA using the orbital atherectomy device from [email or web address]. 3. Successful balloon angioplasty of bilateral SFA using 5.0 x 100 mm balloon with an excellent angiographic result. INDICATION: This is a very pleasant 78-year-old female patient with known history of peripheral arterial disease and prior bilateral iliac stenting, was experiencing bilateral lower extremities intermittent claudication and underwent an angiogram with CO2 and that revealed severe disease involving bilateral SFA. She was brought today to undergo an intervention. APPROACH: Right radial artery. COMPLICATION: None. LEVEL OF SEDATION: The procedure was performed under anesthesia. PROCEDURE DESCRIPTION: After obtaining an informed consent, the patient was brought to the cardiac recyclable materials collector. The right radial artery was cannulated using micropuncture technique, the micropuncture wire passed easily then I placed initially an 11 cm 6-Nepali sheath in the right radial artery. After that, I advanced 0.035 [place] [employer] wire all the way to the left SFA. Subsequently I did exchange my short sheath into a long 140 cm sheath using 0.035 [place] [employer] wire. The tip of the sheath was positioned in the proximal left SFA. After that I did left lower extremity angiogram which revealed 3-vessel runoff below the knee on the left side with severe calcified lesion involving the left SFA. I did wire the lesion using [employer]. After that, I did atherectomy using the orbital atherectomy device from [employer]. After that I did balloon angioplasty, with 5.0 x 100 balloon with good angiographic results after that. For the right leg, I did the same thing after I directed the sheath toward the right iliac artery. After that, I did wire the lesion using a [employer]. After that I did atherectomy using the orbital atherectomy device and I did balloon angioplasty using same balloon which is 5.0 x 100 with the following angiogram showing good angiographic results and the procedure was completed without any complication. POSTPROCEDURE MANAGEMENT: 1. Dual antiplatelet therapy. 2. Risk factor modifications. 3. Follow up with the patient. MMODL / IJN: [id number] /
--- NOTE | 2019-04-30 14:04 | IR ---
Fluoroscopy HISTORY: Peripheral vascular occlusive disease 18.6 minutes fluoroscopy time supplied to the referring clinician. 740 intraoperative C-arm images d ocument the procedure. See dictated report from cardiology.
[2019-04-30 16:42] LABS: Glucose,Whole Blood 126 mg/dL (75-99)
[2019-04-30 19:51] LABS: Glucose,Whole Blood 184 mg/dL (75-99)
[2019-04-30] MEDS: metFORMIN 500 MG TAB PO SCH (20:14)
[2019-04-30] MEDS ORDERED: ROSUVASTATIN CALCIUM 10 MG PO SCH (21:00)
[2019-05-01 06:15] LABS: Glucose,Whole Blood 118 mg/dL (75-99)
[2019-05-01 06:16] LABS: Basophils % (A) 1 %; Eosinophils # (A) 0.7 k/uL (0-0.7); Eosinophils % (A) 10 %; HCT 39.6 % (34.0-46.0); HGB 12.9 gm/dL (11.4-16.0); Lymphocytes # (A) 1.5 k/uL (1.0-4.8); Lymphocytes % (A) 21 %; MCH 29.9 pg (25.0-35.0); MCHC 32.7 g/dL (31.0-37.0); MCV 91.5 fL (80.0-100.0); Mean Platelet Volume 8.7; Monocytes # (A) 0.5 k/uL (0-1.0); Monocytes % (A) 7 %; Neutrophils # (A) 4.3 k/uL (1.3-7.7); Neutrophils % (A) 60 %; Platelet Count 133 k/uL (150-450); RBC 4.33 m/uL (3.80-5.40); WBC 7.1 k/uL (3.8-10.6)
[2019-05-01 06:29] LABS: Potassium 4.5 mmol/L (3.5-5.1)
--- NOTE | 2019-05-01 07:02 | P.DS ---
Providers Date of admission: April 302019 Attending physician: Devan Kumar Primary care physician: Krista [facility] Course: This is a 78-year-old female patient was underwent yesterday successful atherectomy and balloon angioplasty of right and left SFA from right radial approach. She was seen this morning,. She is going to be discharged on dual antiplatelet therapy as well as statin. I'll follow-up with the patient in the office. Plan - Discharge Summary Discharge Rx Participant: No New Discharge Prescriptions: Continue glipiZIDE [Glucotrol] 2.5 mg PO DAILY Aspirin 81 tab PO DAILY Rosuvastatin Calcium 10 mg PO HS Clopidogrel [Plavix] 75 mg PO DAILY #90 tab metFORMIN HCL [Glucophage] 1,000 mg PO BID Atenolol [Tenormin] 50 mg PO DAILY amLODIPine [Norvasc] 5 mg PO DAILY Discharge Medication List Aspirin 81 tab PO DAILY 02/26/15 [History] glipiZIDE [Glucotrol] 2.5 mg PO DAILY 02/26/15 [History] Rosuvastatin Calcium 10 mg PO HS 03/06/18 [History] Clopidogrel [Plavix] 75 mg PO DAILY #90 tab 05/01/18 [Rx] metFORMIN HCL [Glucophage] 1,000 mg PO BID 06/26/18 [History] Atenolol [Tenormin] 50 mg PO DAILY 03/25/19 [History] amLODIPine [Norvasc] 5 mg PO DAILY 03/25/19 [History] Follow up Appointment(s)/Referral(s): Devan Kumar MD [STAFF PHYSICIAN] - 1 Week
[2019-05-01 07:33] VITALS: BP 151/66; PULSE 63; RESP 17; TEMP 98.2
[2019-05-01] MEDS: metFORMIN 500 MG TAB PO SCH ×2 (07:54→07:55)
[2019-05-01] MEDS ORDERED: ATENOLOL 50 MG TAB PO SCH (09:00)
[2019-05-01] MEDS ORDERED: amLODIPine 5 MG TAB PO SCH (09:00)
[2019-05-01] MEDS ORDERED: CLOPIDOGREL 75 MG TAB PO SCH (09:00)
[2019-05-01] MEDS ORDERED: ASPIRIN 81 MG PO SCH (09:00)
== END 2019-05-01 10:58 | disposition home or self-care (01) ==
LOC: CATHCVL 08:27 → 3SCARD 12:00 → CATHCVL 05-01 10:58
PROVIDERS: ATTEND Internal Medicine Interventional Cardiology
DX: I70.213 Atherosclerosis of native arteries of extremities with intermittent claudication, bilateral legs (principal); Z95.820 Peripheral vascular angioplasty status with implants and grafts
CPT/HCPCS: 37225; 80048; 85025; C1769 ×5; C1894; C1724; C1887 ×2; C1725; J2250; J1644; J2405; J2001; J3010; J2704

== ENCOUNTER → 2021-02-21 | Outpatient (CLI) | payer MEDICARE ==
[2021-02-21 10:31] LABS: Basophils # (A) 0.1 k/uL (0-0.2); Basophils % (A) 1 %; Eosinophils # (A) 0.2 k/uL (0-0.7); Eosinophils % (A) 3 %; HCT 45.3 % (34.0-46.0); HGB 14.7 gm/dL (11.4-16.0); Lymphocytes # (A) 1.5 k/uL (1.0-4.8); Lymphocytes % (A) 21 %; MCHC 32.3 g/dL (31.0-37.0); Mean Platelet Volume 8.2; Monocytes # (A) 0.5 k/uL (0-1.0); Monocytes % (A) 7 %; Neutrophils # (A) 4.4 k/uL (1.3-7.7); Neutrophils % (A) 66 %; Platelet Count 169 k/uL (150-450); RBC 4.88 m/uL (3.80-5.40); RDW 13.2 % (11.5-15.5); WBC 6.8 k/uL (3.8-10.6)
[2021-02-21 10:59] LABS: Potassium 4.8 mmol/L (3.5-5.1)
== END | disposition home or self-care (01) ==
LOC: LABPAT 09:42
PROVIDERS: ATTEND Orthopaedic Surgery Hand Surgery
DX: Z01.812 Encounter for preprocedural laboratory examination (principal); M65.322 Trigger finger, left index finger; M65.342 Trigger finger, left ring finger
CPT/HCPCS: 80051; 85025; 93005

== ENCOUNTER 2021-03-22 07:13 | Day surgery (SDC) | payer MEDICARE ==
[2021-03-13 11:09] VITALS: BMI 28.7
--- NOTE | 2021-03-21 10:37 | P.HPOR ---
History of Present Illness H&P Date: 03/21/21 Chief Complaint: Left index and ring finger trigger finger Subjective: This is a 80 year old female that presents today for initial evaluation regarding a 6 month history of left hand pain and stiffness. She states predominately her ring finger and index finger are involved. She reports pain at the base of each finger and limited ability to fully flex the fingers due to pain and swelling. She has tenderness to touch at the base of the ring and index finger. She denies any injury or inciting event, she has a history of bilateral carpal tunnel releases in 2008 and denies any current paresthesias. She has a list of allergic reactions from past experiences and states she is unable to have any type of steroid or anti-inflammatory due to redness and severe itching that results. Physical Examination: LUE: AIN/PIN/Radial/Ulnar/Median motor intact. Radial/Ulnar/Median SILT. 2+/4 Radial/Ulnar pulses palpated. 5/5 APB, 5/5 FDI. Negative Finkelsteins, negative CMC grind, negative Durkan's compression. Wrist F/E 85/85. TTP over A1 narciso's of ring and index finger with limited ROM of flexion/extension due to pain, catching of ring finger noticed with maximal flexion. Imaging: X-Rays of the left hand demonstrate no acute osseus abnormality with no signs of advanced arthritic changes. Impression: 1.) Left index finger trigger finger 2.) Left ring finger trigger finger. Plan: Diagnosis and treatment options were discussed with the patient. Due to the length and severity of symptoms and her inability to have any type of steroid injection she states she would like to proceed with surgical intervention for her index and ring finger trigger fingers with A1 narciso releases of the left ring and index finger. Risks and benefit of surgery including bleeding, infection, damage to surrounding tissue, need for further surgery, residual numbness were discussed and the patient wished to go forward with surgery. -Paolo Carrillo DO Orthopedic Hand/Upper Extremity Surgeon Past Medical History Past Medical History: Coronary Artery Disease (CAD), Diabetes Mellitus, Hyperlipidemia, Hypertension, Osteoarthritis (OA), Skin Disorder, Vascular Disorder Additional Past Medical History / Comment(s): NIDDM type II, PAD, carotid disease-Dr. Chairez monitors, bilateral claudication History of Any Multi-Drug Resistant Organisms: None Reported Past Surgical History: Back Surgery, Heart Catheterization, Hysterectomy, Or thopedic Surgery, Tonsillectomy Additional Past Surgical History / Comment(s): abdominal aortograms,Angiography jarrod ileacs, low back surgery, L foot bunionectomy, bilateral carpal tunnel releases, colonoscopy, bilateral blepharoplasties. Past Anesthesia/Blood Transfusion Reactions: Previous Problems w/ Anesthesia Additional Past Anesthesia/Blood Transfusion Reaction / Comment(s): one time episode of very low BP after having surg. but no problems since Smoking Status: Former smoker - Past Family History Mother Family Medical History: No Reported History Father Family Medical History: Asthma, Cancer Additional Family Medical History / Comment(s): Father did of cancer at the age of 57yrs-pt does not know type of cancer. He had bronchitis and was a smoker. Brother(s) Family Medical History: Cancer Additional Family Medical History / Comment(s): lung Medications and Allergies Home Medications Medication Instructions Recorded Confirmed Type Aspirin 81 mg PO DAILY 02/26/15 03/13/21 History glipiZIDE [Glucotrol] 2.5 mg PO DAILY 02/26/15 03/13/21 History Rosuvastatin Calcium 10 mg PO HS 03/06/18 03/13/21 History Clopidogrel [Plavix] 75 mg PO DAILY #90 tab 05/01/18 03/13/21 Rx metFORMIN HCL [Glucophage] 1,000 mg PO BID 06/26/18 03/13/21 History amLODIPine [Norvasc] 5 mg PO DAILY 03/25/19 03/13/21 History atenoloL [Tenormin] 25 mg PO HS 03/25/19 03/13/21 History Allergies Allergy/AdvReac Type Severity Reaction Status Date / Time Iodinated Contrast Media Allergy Severe Rash/Hives Verified 03/13/21 10:38 [Iodinated Contrast- Oral and IV Dye] povidone-iodine Allergy Severe Rash/Hives Verified 03/13/21 10:38 [From Betadine] prednisone Allergy Severe Rash/Hives Verified 03/13/21 10:38 soap [From Betadine] Allergy Severe Rash/Hives Verified 03/13/21 10:38 atorvastatin calcium Allergy Rash/Hives Verified 03/13/21 10:38 [From Lipitor] dextromethorphan HBr Allergy Rash/Hives Verified 03/13/21 10:38 [From NyQuil] doxylamine succinate Allergy Rash/Hives Verified 03/13/21 10:38 [From NyQuil] fenofibrate nanocrystallized Allergy Rash/Hives Verified 03/13/21 10:38 [From Tricor] fenofibrate,micronized Allergy Rash/Hives Verified 03/13/21 10:38 [From Tricor] fexofenadine HCl Allergy Rash/Hives Verified 03/13/21 10:38 [From Marian] losartan Allergy Cough Verified 03/13/21 10:38 pseudoephedrine HCl Allergy Rash/Hives Verified 03/13/21 10:38 [From NyQuil] Sulfa (Sulfonamide Allergy Rash/Hives Verified 03/13/21 10:38 Antibiotics) diphenhydramine AdvReac Severe IV form Verified 03/13/21 10:38 [From Benadryl] caused Hallucinations acetaminophen [From NyQuil] AdvReac Rash/Hives Verified 03/13/21 10:38 naproxen [From Naprosyn] AdvReac Rash/Hives Verified 03/13/21 10:38 Penicillins AdvReac Rapid Verified 03/13/21 10:38 Heart Rate ramipril [From Altace] AdvReac Cough Verified 03/13/21 10:38 Physical Examination Osteopathic Statement: *. No significant issues noted on an osteopathic structural exam other than those noted in the History and Physical/Consult.
[~2021-03-22 07:13] MED LIST changes: -ALPRAZolam 0.25 MG TAB PO PRN; -ALPRAZolam 0.5 MG TAB PO PRN; -ASPIRIN 325 MG TAB PO STA; +HYDROmorphone 0.5 MG/0.5 ML SYRINGE IVP PRN; +LACTATED RINGERS 1,000 ML IV SCH; +LIDOCAINE 1% (10MG/ML) FOR IV START INTRADERMA PRN; +ONDANSETRON 4 MG/2 ML VIAL IVP ONE; +Pre Op ABX Message 1 EACH MISC MISCELLANE ONE; -SODIUM CHLORIDE 0.9% 1,000 ML in EMPTY BAG 1 BAG IV ONE; -ZOLPIDEM 5 MG TAB PO PRN
[2021-03-22 08:22] VITALS: TEMP 97.8
[2021-03-22] MEDS ORDERED: MIDAZOLAM 2 MG/2 ML VIAL ONE (08:24)
[2021-03-22] MEDS ORDERED: PROPOFOL 10 MG/ML 20 ML VIAL IV ONE (08:24)
[2021-03-22 08:30] LABS: Glucose,Whole Blood 137 mg/dL (75-99)
[2021-03-22] MEDS ORDERED: LIDOCAINE 1% INJ 10MG/ML (20 ML MDV) SQ ONE (08:48)
[2021-03-22] MEDS ORDERED: BUPIVACAINE (PF) 0.5% 30 ML VIAL SQ ONE (08:48)
[2021-03-22 09:10] VITALS: PULSE 66
[2021-03-22 09:34] VITALS: BP 119/65; RESP 18
--- NOTE | 2021-03-22 16:24 | P.OP ---
Date of Procedure: 03/22/21 Preoperative Diagnosis: 1.) Left index finger trigger finger 2.) Left ring finger trigger finger Postoperative Diagnosis: Same Procedure(s) Performed: 1.) Left index finger A1 narciso release 2.) Left ring finger A1 narciso release Anesthesia: MAC Surgeon: Paolo Carrillo Amusement Ride Inspector #1: Olu Puckett Estimated Blood Loss (ml): 2 Pathology: none sent Condition: stable Disposition: PACU Description of Procedure: This is a 80 year old female who presents today for a left index and ring finger trigger finger A1 narciso release after having failed conservative treatment. Risks and benefits of surgery were discussed with the patient including bleeding, damage to surrounding tissue, infection, need for further surgery as well as risks of anesthesia including pulmonary embolism and even and the patient wished to proceed with surgical intervention. The patient was seen in the pre-operative area by myself. Consent and H&P were completed and updated. The correct extremity was marked in the pre-operative area by myself and all other questions were answered. Operative Narrative: The patient was brought to the operating room by the department of anesthesia. They remained on the portable stretcher and a rolling hand table was brought to the side of the operative extremity. Pre-operative time out was performed indicating the correct patient, procedure and laterality. All in the room agreed. Pre-operative antibiotics were given prior to skin incision. The patient was then drifted off to sleep by the department of anesthesia. MAC anesthesia was utilized and a 50:50 mixture of 1% Lidocaine and 0.5% bupivacaine was injected into the subcutaneous tissues of the palmar skin,7 ccs total. A nonsterile tourniquet was then applied to the operative extremity and the left upper extremity was then prepped and draped in normal sterile fashion. The operative extremity was the exsanguinated with an esmarch bandage and the tourniquet was inflated to 250mmHg. Oblique incision was made at the base of the index finger. Blunt dissection was taken down to the level of the A1 narciso. Ragnell retractors were placed both radially and ulnarly to protect neurovascular bundles. Littler tenotomy scissors were then used to release the A1 narciso from proximal to distal under direct visualization. Proximal fascial attachments were released. The tendon was then taken through range of motion and no locking or catching was appreciated. Oblique incision was made at the base of the ring finger. Blunt dissection was taken down to the level of the A1 narciso. Ragnell retractors were placed both radially and ulnarly to protect neurovascular bundles. Littler tenotomy scissors were then used to release the A1 narciso from proximal to distal under direct visualization. Proximal fascial attachments were released. The tendon was then t aken through range of motion and no locking or catching was appreciated. The wound was then closed with interrupted 4-0 nylon sutures in a horizontal mattress fashion. Sterile dressing consisting of adaptic, 4x4s, webril, and an yaw wrap was applied. Tourniquet was let down and the hand was immediately well perfused. The patient was then woken by the department of anesthesia and transferred to PACU in stable condition. Paolo Carrillo D.O. Orthopedic Hand/Upper Extremity Surgeon
== END 2021-03-22 10:27 | disposition home or self-care (01) ==
LOC: OR 07:13
PROVIDERS: ATTEND Orthopaedic Surgery Hand Surgery
DX: M65.322 Trigger finger, left index finger (principal); M65.342 Trigger finger, left ring finger; E11.9 Type 2 diabetes mellitus without complications; E78.5 Hyperlipidemia, unspecified; I25.10 Atherosclerotic heart disease of native coronary artery without angina pectoris; I10 Essential (primary) hypertension; M19.90 Unspecified osteoarthritis, unspecified site; Z87.891 Personal history of nicotine dependence; E11.51 Type 2 diabetes mellitus with diabetic peripheral angiopathy without gangrene; I65.29 Occlusion and stenosis of unspecified carotid artery; Z79.82 Long term (current) use of aspirin; Z79.899 Other long term (current) drug therapy; Z79.84 Long term (current) use of oral hypoglycemic drugs; Z88.2 Allergy status to sulfonamides; Z88.8 Allergy status to other drugs, medicaments and biological substances; Z88.6 Allergy status to analgesic agent; Z91.041 Radiographic dye allergy status; Z91.010 Allergy to peanuts; Z79.02 Long term (current) use of antithrombotics/antiplatelets
CPT/HCPCS: 26055 ×2; J2250; J2405; J2001; J2704

== ENCOUNTER → 2023-09-10 | Outpatient (CLI) | payer MEDICARE ==
--- NOTE | 2023-09-11 07:45 | CA ---
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 67 - 155 / 56 - 104 cm??? LV Systolic Volume MOD BP 30.1 cm??? 22 - 58 / 19 - 49 cm??? LV Ejection Fraction MOD BP 61.4 % >= 55 % LV Cardiac Index MOD BP 1258.4 cm???/min???m??? LV Diastolic Volume MOD 4C 93.9 cm??? LV Systolic Volume MOD 4C 37.6 cm??? LV Ejection Fraction MOD 4C 59.9 % LV Cardiac Index MOD 4C 1481.1 cm???/min???m??? LV Diastolic Length 4C 7.8 cm LV Systolic Length 4C 6.1 cm LV Diastolic Volume MOD 2C 59.0 cm??? LV Systolic Volume MOD 2C 23.8 cm??? LV Ejection Fraction MOD 2C 59.7 % LV Cardiac Index MOD 2C 928.1 cm???/min???m??? LV Diastolic Length 2C 7.1 cm LV Systolic Length 2C 5.9 cm LA Volume 70.8 cm??? 18 - 58 / 22 - 52 cm??? LA Volume Index 38.8 cm???/m??? 16 - 28 cm???/m??? Ascending Aorta Diameter 3.2 cm DOPPLER AV Peak Velocity 207.3 cm/s AV Peak Gradient 17.2 mmHg AV Mean Velocity 137.9 cm/s AV Mean Gradient 8.6 mmHg AV Velocity Time Integral 56.1 cm LVOT Peak Velocity 109.9 cm/s LVOT Peak Gradient 4.8 mmHg LVOT Velocity Time Integral 31.6 cm LVOT Stroke Volume 109.6 cm??? LVOT Stroke Volume Index 62.1 ml/m??? LVOT Cardiac Index 2884.6 cm???/min???m??? AV Area Cont Eq vti 2.0 cm??? AV Area Cont Eq pk 1.8 cm??? MV Area PHT 3.6 cm??? Mitral E Point Velocity 81.7 cm/s Mitral A Point Velocity 82.7 cm/s Mitral E to A Ratio 1.0 MV Deceleration Time 209.9 ms TR Peak Velocity 285.9 cm/s TR Peak Gradient 32.7 mmHg Right Atrial Pressure 5.0 mmHg Pulmonary Artery Systolic Pressu 37.7 mmHg Right Ventricular Systolic Press 37.7 mmHg PV Peak Velocity 73.3 cm/s PV Peak Gradient 2.2 mmHg FINDINGS Left Ventricle Left ventricular ejection fraction is estimated at 55-60 %. Mildly increased septal wall thickness. Left ventricular cavity size normal. No obvious regional wall motion abnormalities. Right Ventricle Normal right ventricular size and function. Mildly elevated right ventricular systolic pressure. Right Atrium Right atrial dilatation by visual. Left Atrium Moderately increased left atrial volume. Mildly increased left atrial area. Mitral Valve Mitral valve thickened. No evidence for mitral valve prolapse. No mitral stenosis. Mild mitral regurgitation. Aortic Valve Trileaflet aortic valve. Aortic valve sclerosis. No aortic stenosis. Mean gradient 8mmHg. Mild aortic regurgitation. Tricuspid Valve Structurally normal tricuspid valve. No tricuspid stenosis. Moderate tricuspid regurgitation. Pulmonic Valve Structurally normal pulmonic valve. No pulmonic stenosis. Mild pulmonic regurgitation. Pericardium No pericardial effusion. Aorta Normal size aortic root and proximal ascending aorta. CONCLUSIONS Left ventricular ejection fraction 55-60% Mild increased left ventricular wall thickness RVSP 37 Mildly dilated left atrium Mild mitral regurgitation Mild aortic regurgitation Moderate tricuspid regurgitation Previewed by: Dr. Tye Bryson DO (Electronically Signed) Final Date: 11 September 2023 07:44
== END | disposition home or self-care (01) ==
LOC: RADECHMAIN 12:31
PROVIDERS: ATTEND Internal Medicine Interventional Cardiology
DX: I21.9 Acute myocardial infarction, unspecified (principal); I08.3 Combined rheumatic disorders of mitral, aortic and tricuspid valves; R06.02 Shortness of breath
CPT/HCPCS: 93306